=== PATIENT | female | born 1940 | race Two or more races ===

== ENCOUNTER 2018-08-17 18:12 | Inpatient (IN) | payer MEDICARE, OTHER ==
[~2018-08-17] VITALS: Ht 157.5 cm; Wt 106.1 kg
[~2018-08-17 18:12] MED LIST: ACET650T11 PO; ASCO500C16 PO; BISA10SU12 RC; DOCU-141 PO; ENOX40DI SQ; GABA-534 PO; LANTUS SUBCUT; LISI-603 PO; MAG30ORA PO; MAGN400O6 PO; MAGN400T6 PO; MULT-67 PO; NA P133E RC; PANT40TA2 PO; SIMV20TA2 PO; ZINC220T PO; ZOLP5TAB2 PO
--- NOTE | 2018-08-17 18:29 | NUR ---
PT A/OX4, BIB PRIVATE AMBULANCE FROM [facility], C/O LBKA PHANTOM PAIN. PT WAS ADMIN NORCO APPROXIMATELY AROUND 1300 TODAY. VS WNL. PT ALSO HAS R ABOVE ELBOW AMPUTATION.
--- NOTE | 2018-08-17 19:02 | NUR ---
SHIFT REPORT GIVEN TO SREE Rutherford RN.
--- NOTE | 2018-08-17 19:05 | NUR ---
ASSUMED CARE OF PATIENT FROM Malu DE LEON RN. PENDING ER MD CAVAZOS AT THIS TIME. VSS.
--- NOTE | 2018-08-17 19:18 | NUR ---
Patient not in cardiopulmonary distress. Rate/rythm regular. No heaves, lifts, gallops/murmurs noted. Respiration even and unlabored with symmetrical rise.
--- NOTE | 2018-08-17 19:41 | NUR ---
PATIENT PENDING INPATIENT ADMISSION TO TELEMETRY
[2018-08-17] MEDS ORDERED: HYDROMORPHONE 1 MG/1 ML DISP.SYRIN IV ONE (19:45)
[2018-08-17] MEDS ORDERED: ONDANSETRON 4 MG/2 ML VIAL IV ONE (19:45)
[2018-08-17] MEDS ORDERED: IV NORMAL SALINE 1000 ML BAG IV ONE (19:45)
[2018-08-17] MEDS ORDERED: LOPE-156 PO (19:57)
[2018-08-17] MEDS ORDERED: CRAN450T9 PO (19:57)
[2018-08-17] MEDS ORDERED: CALC-261 PO (19:57)
[2018-08-17] MEDS ORDERED: FAMO20TA8 PO (19:57)
[2018-08-17] MEDS ORDERED: OLOP5DRO EACHEYE (19:57)
[2018-08-17] MEDS ORDERED: LACT1CAP69 PO (19:57)
[2018-08-17] MEDS ORDERED: ALBU2.5V38 IH (19:57)
[2018-08-17] MEDS ORDERED: DEXT15DR6 OP (19:57)
[2018-08-17] MEDS ORDERED: HYDR-3326 PO (19:57)
[2018-08-17] MEDS ORDERED: BENA5TAB5 PO (19:57)
[2018-08-17] MEDS ORDERED: HYDROMORPHONE 1 MG/1 ML DISP.SYRIN ONE (19:57)
[2018-08-17] MEDS ORDERED: ONDANSETRON 4 MG/2 ML VIAL ONE (19:57)
[2018-08-17] MEDS ORDERED: ASPI-605 PO (19:57)
[2018-08-17] MEDS ORDERED: INSU100I26 SQ (19:57)
[2018-08-17] MEDS ORDERED: SIME80TA15 PO (19:57)
[2018-08-17] MEDS ORDERED: CARB-93 PO (19:57)
[2018-08-17] MEDS ORDERED: MULT-213 PO (19:57)
[2018-08-17] MEDS ORDERED: OMEG1CAP GT (19:57)
[2018-08-17] MEDS ORDERED: SIMV10TA6 PO (19:57)
[2018-08-17 20:03] LABS: BASOPHILS # (AUTO) 0.1 K/uL (0.0-8.0); BASOPHILS % (AUTO) 1.3 % (0.0-2.0); EOSINOPHILS # (AUTO) 0.1 K/uL (0.0-0.7); HEMATOCRIT 37.1 % (31.2-41.9); HEMOGLOBIN 12.2 g/dL (10.9-14.3); LYMPHOCYTES # (AUTO) 2.7 K/uL (20.0-40.0); LYMPHOCYTES % (AUTO) 28.8 % (20.5-51.5); MEAN CORPUSCULAR HEMOGLOBIN 28.6 uug (24.7-32.8); MEAN CORPUSCULAR HGB CONC 33 g/dL (32.3-35.6); MEAN CORPUSCULAR VOLUME 86.8 fL (75.5-95.3); MONOCYTES # (AUTO) 0.6 K/uL (2.0-10.0); NEUTROPHILS % (AUTO) 62.9 % (38.5-71.5); PLATELET COUNT (AUTO) 244 K/uL (179-408); RED BLOOD CELL COUNT(AUTO) 4.28 MIL/uL (3.63-4.92); WHITE BLOOD COUNT (AUTO) 9.5 K/uL (3.8-11.8)
--- NOTE | 2018-08-17 20:04 | NUR ---
PT IN BED, PENDING CT AT THIS TIME. MEDICATED FOR PAIN. WILL CONTINUE TO MONITOR.
[2018-08-17 20:12] LABS: CARBON DIOXIDE 26 mmol/L (21-32); CHLORIDE 101 mmol/L (98-107); CREATININE 1.1 mg/dL (0.6-1.3); GLUCOSE 203 mg/dL (74-106); POTASSIUM 4.7 mmol/L (3.5-5.1); UREA NITROGEN, BLOOD 19 mg/dL (7-18)
[2018-08-17] MEDS ORDERED: INSU100V11 SUBCUT (20:13)
[2018-08-17 20:17] LABS: ALANINE AMINOTRANSFERASE 9 U/L (14-59); ALKALINE PHOSPHATASE 76 U/L (50-136); ASPARTATE AMINOTRANSFERASE 15 U/L (15-37); BILIRUBIN,DIRECT 0.1 mg/dL (0.0-0.2); BILIRUBIN,TOTAL 0.3 mg/dL (0.2-1.0); LIPASE 96 U/L (73-393); TOTAL PROTEIN, SERUM 7.8 g/dL (6.4-8.2)
--- NOTE | 2018-08-17 20:21 | NUR ---
Patient taken for CT via trasport.
--- NOTE | 2018-08-17 20:37 | NUR ---
patient back from CT
--- NOTE | 2018-08-17 21:08 | NUR ---
Urine requested from patient. patient states she is unable to provide urine at this time.
--- NOTE | 2018-08-17 21:30 | NUR ---
report given to Violeta DONAHUE on Telemetry Pt. admitted to telemetry , under care of Dr Maradiaga. Dx Intractable Pain. Belongs List completed
--- NOTE | 2018-08-17 22:15 | NUR ---
Received patient from ER. Dx: Intractable pain. Patient is A/Ox4, Japanese speaking. 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 Heplock on the left wrist is intact and patent. No signs of acute distress noted. Complains of pain to the left leg. No complaints of SOB. All belongings brought with patient. Safety measures initiated. Bed is low and locked, call light within reach. Will continue to monitor.
[2018-08-17 22:26] VITALS: BP 132/56
[2018-08-17] MEDS ORDERED: OLOPATADINE 0.1% OPHT DROP 5 ML BOTTLE EACHEYE SCH (22:30)
[2018-08-17] MEDS ORDERED: ALBUTEROL SULFATE 2.5 MG/3 ML NEBU IH PRN (22:30)
[2018-08-17] MEDS ORDERED: HYDROCODONE/APAP 5-325MG TABLET PO PRN (22:30)
[2018-08-17] MEDS ORDERED: SIMETHICONE 80 MG TAB.CHEW PO PRN (22:30)
[2018-08-17] MEDS ORDERED: DEXTROSE 50% 50 ML DISP.SYRIN IV PRN (22:45)
[2018-08-17] MEDS ORDERED: ONDANSETRON 4 MG/2 ML VIAL IV PRN (22:45)
[2018-08-17] MEDS: MORPHINE SULFATE 2 MG/1 ML DISP.SYRIN IV PRN (23:04)
[2018-08-18] VITALS: BP 130/54
[2018-08-18] MEDS: ENOXAPARIN SODIUM 40 MG/0.4 ML DISP.SYRIN SQ SCH ×2 (00:07→21:21)
[2018-08-18] MEDS: INSULIN GLARGINE,HUM 300 UNITS/3 ML CARTRIDGE SQ SCH ×3 (01:05→22:32)
[2018-08-18] MEDS: MORPHINE SULFATE 2 MG/1 ML DISP.SYRIN IV PRN (02:15)
[2018-08-18] MEDS: ACETAMINOPHEN 325 MG TABLET PO PRN ×3 (02:22→17:15)
[2018-08-18 04:00] VITALS: BP 135/63
--- NOTE | 2018-08-18 04:47 | NUR ---
Patient was stating that morphine 2mg was not really helping with the pain, called on-call Dr. Saul and he increased dose to 3mg Q3H PRN. Will continue to monitor.
[2018-08-18 05:35] LABS: *BILIRUBIN,URIN NEGATIVE (NEGATIVE); *BLOOD, URINE NEGATIVE (NEGATIVE); *KETONES,URINE NEGATIVE (NEGATIVE); *UROBILINOGEN,URINE 0.2 E.U./dl (NORMAL); LEUKOCYTE ESTERASE ,URINE TRACE (NEGATIVE); NITRITE, URINE NEGATIVE (NEGATIVE); PH,URINE 5.5 (5.0-8.0); UGLUCOSE NEGATIVE (NEGATIVE)
[2018-08-18 05:36] LABS: *CLARITY,URINE HAZY (CLEAR); *COLOR,URINE STRAW (YELLOW)
[2018-08-18] MEDS: MORPHINE SULFATE 4 MG/1 ML DISP.SYRIN IV PRN ×3 (05:53→13:02)
[2018-08-18 05:56] LABS: BACTERIA,URINE MANY /HPF (NONE SEEN); RBC,URINE 0-3 /HPF (0-3); SQUAMOUS EPITHELIAL CELL,UR FEW /HPF (NONE SEEN)
[2018-08-18] MEDS: BLOOD SUGAR DIAGNOSTIC 1 EACH STRIP VI SCH ×4 (06:43→21:17)
[2018-08-18 07:01] LABS: BASOPHILS # (AUTO) 0.1 K/uL (0.0-8.0); BASOPHILS % (AUTO) 0.9 % (0.0-2.0); EOSINOPHILS # (AUTO) 0.1 K/uL (0.0-0.7); EOSINOPHILS % (AUTO) 1.4 % (0.0-7.0); HEMATOCRIT 34.1 % (31.2-41.9); HEMOGLOBIN 11.2 g/dL (10.9-14.3); LYMPHOCYTES # (AUTO) 3.2 K/uL (20.0-40.0); LYMPHOCYTES % (AUTO) 37.8 % (20.5-51.5); MEAN CORPUSCULAR HEMOGLOBIN 28.8 uug (24.7-32.8); MEAN CORPUSCULAR HGB CONC 33 g/dL (32.3-35.6); MONOCYTES # (AUTO) 0.7 K/uL (2.0-10.0); MONOCYTES % (AUTO) 8.2 % (0.0-11.0); NEUTROPHILS # (AUTO) 4.4 K/uL (1.8-8.9); NEUTROPHILS % (AUTO) 51.7 % (38.5-71.5); PLATELET COUNT (AUTO) 215 K/uL (179-408); RED BLOOD CELL COUNT(AUTO) 3.88 MIL/uL (3.63-4.92); WHITE BLOOD COUNT (AUTO) 8.4 K/uL (3.8-11.8)
[2018-08-18 07:12] LABS: IRON, SERUM 63 ug/dL (50-175)
[2018-08-18] MEDS ORDERED: ALBUTEROL SULFATE 2.5 MG/3 ML NEBU NEB PRN (07:21)
[2018-08-18 07:36] LABS: ALANINE AMINOTRANSFERASE 20 U/L (14-59); ALKALINE PHOSPHATASE 66 U/L (50-136); ASPARTATE AMINOTRANSFERASE 17 U/L (15-37); BILIRUBIN,TOTAL 0.3 mg/dL (0.2-1.0); CARBON DIOXIDE 29 mmol/L (21-32); CHLORIDE 103 mmol/L (98-107); CHOLESTEROL 178 mg/dL (<200); CREATININE 1.1 mg/dL (0.6-1.3); GLUCOSE 165 mg/dL (74-106); HDL CHOLESTEROL 49 mg/dL (40-60); MAGNESIUM 1.9 mg/dL (1.8-2.4); PHOSPHOROUS 3.8 mg/dL (2.5-4.9); POTASSIUM 4.6 mmol/L (3.5-5.1); TRIGLYCERIDES 170 MG/DL (30-150); UREA NITROGEN, BLOOD 18 mg/dL (7-18); URIC ACID 6.5 mg/dL (2.6-6.0)
--- NOTE | 2018-08-18 08:00 | NUR ---
Awake, alert, oriented x 4, Tamazight speaking, on moderate high back rest. Complaining of sever pain of left AKA stump. Blood glucose rechecked 124
[2018-08-18 08:06] LABS: THYROID STIMULATING HORMONE 3.802 mIU/mL (0.358-3.740)
[2018-08-18] MEDS ORDERED: Medication Not On Formulary EA (Lactobacillus Acidophilus (Probiotic) 1 EACH) PO SCH (09:00)
[2018-08-18] MEDS: SIMETHICONE 80 MG TAB.CHEW PO SCH ×3 (09:33→17:14)
[2018-08-18] MEDS: ACIDOPHILUS/BULGARICUS CHEW TAB PO SCH (09:34)
[2018-08-18] MEDS: ASPIRIN EC 81 MG TABLET.DR PO SCH (09:34)
[2018-08-18] MEDS: OMEGA-3 FATTY ACIDS/FISH OIL CAPSULE PO SCH (09:34)
[2018-08-18] MEDS: DOCUSATE SODIUM 100 MG CAPSULE PO SCH (09:34)
[2018-08-18] MEDS: ASCORBIC ACID 500 MG TABLET PO SCH (09:35)
[2018-08-18] MEDS: MULTIVIT, IRON, MIN NO. 8, FA TABLET PO SCH (09:35)
[2018-08-18] MEDS: CALCIUM CARB/VITAMIN D 500MG-200UNITS TABLET PO SCH (09:35)
[2018-08-18] MEDS: GABAPENTIN 300 MG CAPSULE PO SCH ×2 (09:35→17:14)
[2018-08-18] MEDS: NITROFURANTOIN/NITROFURAN MAC 100 MG CAPSULE PO SCH ×2 (09:35→21:11)
[2018-08-18] MEDS: CARBIDOPA/LEVODOPA 25-100MG TABLET PO SCH ×3 (09:35→17:14)
[2018-08-18] MEDS: BENAZEPRIL HCL 5 MG TABLET PO SCH (09:36)
--- NOTE | 2018-08-18 09:41 | NUR ---
Complaining of sever pain left stump BKA. Morphine IV given as ordered. Resting comfortably.
[2018-08-18] MEDS ORDERED: KETOROLAC TROMETHAMINE 15 MG INJ IVP PRN ×2 (10:45→12:45)
[2018-08-18 11:23] VITALS: BP 146/59
[2018-08-18] MEDS: INSULIN REGULAR, HUMAN 300 UNIT/3 ML VIAL SQ PRN ×2 (12:51→17:16)
--- NOTE | 2018-08-18 13:05 | NUR ---
Complaining left stump. Medicated with Morphine with relief
[2018-08-18] MEDS: POLYVINYL ALCOHOL OPHT DROPS 15 ML BOTTLE EACHEYE SCH ×2 (13:07→22:22)
[2018-08-18 15:28] VITALS: BP 113/50
--- NOTE | 2018-08-18 18:08 | NUR ---
Dr. Alvarez seen and examined patient, discussed plan for pain management.
[2018-08-18] MEDS ORDERED: OXYCODONE/APAP 5-325 MG TABLET PO PRN (18:15)
[2018-08-18] MEDS: DULOXETINE 20 MG CAPSULE.DR PO SCH (19:20)
[2018-08-18 20:37] VITALS: BP 131/67
[2018-08-18] MEDS ORDERED: DOCUSATE SODIUM 100 MG CAPSULE PO SCH (21:00)
[2018-08-18] MEDS ORDERED: DOCUSATE SODIUM 250 MG CAPSULE PO SCH (21:00)
[2018-08-18] MEDS: FAMOTIDINE 20 MG TABLET PO SCH (21:11)
[2018-08-18] MEDS: MAGNESIUM OXIDE 400 MG TABLET PO SCH (21:11)
[2018-08-18] MEDS: SIMVASTATIN 10 MG TABLET PO SCH (21:11)
--- NOTE | 2018-08-18 21:43 | NUR ---
Patient's HS blood sugar is 139, RN notified PROGRAM DIRECTOR SCOUTING Jeffery regarding Lantus orders and gave orders to give 32 units sq instead of 64 units.
[2018-08-18] MEDS ORDERED: INSULIN GLARGINE,HUM 300 UNITS/3 ML CARTRIDGE SQ ONE (22:00)
[2018-08-18] MEDS: LIDOCAINE 5% OINT 35.44 GM TUBE TOP SCH (22:22)
[2018-08-18] MEDS: OXYCODONE/APAP 5-325 MG TABLET PO PRN (22:23)
[2018-08-19 05:33] VITALS: BP 125/78
[2018-08-19] MEDS: BLOOD SUGAR DIAGNOSTIC 1 EACH STRIP VI SCH ×4 (06:32→22:45)
[2018-08-19] MEDS: POLYVINYL ALCOHOL OPHT DROPS 15 ML BOTTLE EACHEYE SCH ×3 (06:32→22:05)
[2018-08-19 06:56] LABS: BASOPHILS # (AUTO) 0.1 K/uL (0.0-8.0); EOSINOPHILS # (AUTO) 0.1 K/uL (0.0-0.7); EOSINOPHILS % (AUTO) 1.8 % (0.0-7.0); HEMATOCRIT 33.1 % (31.2-41.9); HEMOGLOBIN 11.3 g/dL (10.9-14.3); LYMPHOCYTES # (AUTO) 2.4 K/uL (20.0-40.0); LYMPHOCYTES % (AUTO) 34.5 % (20.5-51.5); MEAN CORPUSCULAR HEMOGLOBIN 30.1 uug (24.7-32.8); MEAN CORPUSCULAR HGB CONC 34 g/dL (32.3-35.6); MEAN CORPUSCULAR VOLUME 88.5 fL (75.5-95.3); MONOCYTES # (AUTO) 0.5 K/uL (2.0-10.0); MONOCYTES % (AUTO) 7.4 % (0.0-11.0); NEUTROPHILS # (AUTO) 3.8 K/uL (1.8-8.9); NEUTROPHILS % (AUTO) 55.3 % (38.5-71.5); PLATELET COUNT (AUTO) 176 K/uL (179-408); RED BLOOD CELL COUNT(AUTO) 3.74 MIL/uL (3.63-4.92); WHITE BLOOD COUNT (AUTO) 6.9 K/uL (3.8-11.8)
--- NOTE | 2018-08-19 06:56 | NUR ---
Pt is A&Ox3, calm & cooperative, Chinese-speaking only. C/o 8/10 pain to left stump, PRN percocet and IV Morphine given during shift. Pain meds effective. No acute respiratory distress noted throughout shift. No diabetic crisis observed. All needs met.
[2018-08-19 07:05] LABS: CARBON DIOXIDE 29 mmol/L (21-32); CHLORIDE 102 mmol/L (98-107); CREATININE 1.2 mg/dL (0.6-1.3); GLUCOSE 130 mg/dL (74-106); PHOSPHOROUS 4.5 mg/dL (2.5-4.9); POTASSIUM 4.7 mmol/L (3.5-5.1); UREA NITROGEN, BLOOD 19 mg/dL (7-18)
[2018-08-19] MEDS: DOCUSATE SODIUM 100 MG CAPSULE PO SCH (08:00)
[2018-08-19] MEDS: ACIDOPHILUS/BULGARICUS CHEW TAB PO SCH (08:00)
[2018-08-19] MEDS: NITROFURANTOIN/NITROFURAN MAC 100 MG CAPSULE PO SCH ×2 (08:00→21:53)
[2018-08-19] MEDS: OMEGA-3 FATTY ACIDS/FISH OIL CAPSULE PO SCH (08:00)
[2018-08-19] MEDS: ASPIRIN EC 81 MG TABLET.DR PO SCH (08:01)
[2018-08-19] MEDS: MULTIVIT, IRON, MIN NO. 8, FA TABLET PO SCH (08:01)
[2018-08-19] MEDS: CALCIUM CARB/VITAMIN D 500MG-200UNITS TABLET PO SCH (08:01)
[2018-08-19] MEDS: ASCORBIC ACID 500 MG TABLET PO SCH (08:01)
[2018-08-19] MEDS: GABAPENTIN 300 MG CAPSULE PO SCH ×3 (08:01→16:38)
[2018-08-19] MEDS: SIMETHICONE 80 MG TAB.CHEW PO SCH ×3 (08:01→17:13)
[2018-08-19] MEDS: BENAZEPRIL HCL 5 MG TABLET PO SCH (08:02)
[2018-08-19] MEDS: CARBIDOPA/LEVODOPA 25-100MG TABLET PO SCH ×3 (08:02→16:38)
[2018-08-19] MEDS: DULOXETINE 20 MG CAPSULE.DR PO SCH (08:02)
[2018-08-19] MEDS: LIDOCAINE 5% OINT 35.44 GM TUBE TOP SCH ×2 (08:30→16:38)
[2018-08-19] MEDS: INSULIN REGULAR, HUMAN 300 UNIT/3 ML VIAL SQ PRN ×3 (10:54→23:27)
[2018-08-19] MEDS: ACETAMINOPHEN 325 MG TABLET PO PRN (10:56)
[2018-08-19 11:06] VITALS: BP 117/58
[2018-08-19 15:31] VITALS: BP 111/55
[2018-08-19 19:17] VITALS: BP 107/54
[2018-08-19] MEDS: SIMVASTATIN 10 MG TABLET PO SCH (21:53)
[2018-08-19] MEDS: MAGNESIUM OXIDE 400 MG TABLET PO SCH (21:53)
[2018-08-19] MEDS: FAMOTIDINE 20 MG TABLET PO SCH (21:53)
[2018-08-19] MEDS: ENOXAPARIN SODIUM 40 MG/0.4 ML DISP.SYRIN SQ SCH (22:01)
[2018-08-19] MEDS: OXYCODONE/APAP 5-325 MG TABLET PO PRN (22:16)
[2018-08-20 03:23] VITALS: BP 117/55
[2018-08-20] MEDS: POLYVINYL ALCOHOL OPHT DROPS 15 ML BOTTLE EACHEYE SCH ×2 (05:43→13:00)
[2018-08-20 06:43] LABS: BASOPHILS # (AUTO) 0.1 K/uL (0.0-8.0); BASOPHILS % (AUTO) 0.8 % (0.0-2.0); EOSINOPHILS # (AUTO) 0.2 K/uL (0.0-0.7); EOSINOPHILS % (AUTO) 2.1 % (0.0-7.0); HEMATOCRIT 34.8 % (31.2-41.9); HEMOGLOBIN 11.4 g/dL (10.9-14.3); LYMPHOCYTES # (AUTO) 2.6 K/uL (20.0-40.0); MEAN CORPUSCULAR HEMOGLOBIN 28.9 uug (24.7-32.8); MEAN CORPUSCULAR HGB CONC 33 g/dL (32.3-35.6); MEAN CORPUSCULAR VOLUME 87.9 fL (75.5-95.3); MONOCYTES # (AUTO) 0.6 K/uL (2.0-10.0); MONOCYTES % (AUTO) 7.8 % (0.0-11.0); NEUTROPHILS # (AUTO) 4.3 K/uL (1.8-8.9); NEUTROPHILS % (AUTO) 55.3 % (38.5-71.5); PLATELET COUNT (AUTO) 221 K/uL (179-408); RED BLOOD CELL COUNT(AUTO) 3.95 MIL/uL (3.63-4.92); WHITE BLOOD COUNT (AUTO) 7.8 K/uL (3.8-11.8)
[2018-08-20 06:55] LABS: CARBON DIOXIDE 29 mmol/L (21-32); CHLORIDE 102 mmol/L (98-107); GLUCOSE 137 mg/dL (74-106); MAGNESIUM 2.2 mg/dL (1.8-2.4); POTASSIUM 4.4 mmol/L (3.5-5.1); UREA NITROGEN, BLOOD 22 mg/dL (7-18)
[2018-08-20] MEDS: BLOOD SUGAR DIAGNOSTIC 1 EACH STRIP VI SCH ×2 (06:55→10:44)
[2018-08-20] MEDS: INSULIN REGULAR, HUMAN 300 UNIT/3 ML VIAL SQ PRN ×2 (07:15→11:35)
[2018-08-20] MEDS: DOCUSATE SODIUM 100 MG CAPSULE PO SCH (08:15)
[2018-08-20] MEDS: CARBIDOPA/LEVODOPA 25-100MG TABLET PO SCH ×2 (08:15→12:06)
[2018-08-20] MEDS: ASCORBIC ACID 500 MG TABLET PO SCH (08:16)
[2018-08-20] MEDS: CALCIUM CARB/VITAMIN D 500MG-200UNITS TABLET PO SCH (08:16)
[2018-08-20] MEDS: OMEGA-3 FATTY ACIDS/FISH OIL CAPSULE PO SCH (08:16)
[2018-08-20] MEDS: SIMETHICONE 80 MG TAB.CHEW PO SCH ×2 (08:16→11:29)
[2018-08-20] MEDS: ACIDOPHILUS/BULGARICUS CHEW TAB PO SCH (08:16)
[2018-08-20] MEDS: DULOXETINE 20 MG CAPSULE.DR PO SCH (08:16)
[2018-08-20] MEDS: BENAZEPRIL HCL 5 MG TABLET PO SCH (08:16)
[2018-08-20] MEDS: GABAPENTIN 300 MG CAPSULE PO SCH ×2 (08:16→12:06)
[2018-08-20] MEDS: ASPIRIN EC 81 MG TABLET.DR PO SCH (08:16)
[2018-08-20] MEDS: MULTIVIT, IRON, MIN NO. 8, FA TABLET PO SCH (08:16)
[2018-08-20] MEDS: NITROFURANTOIN/NITROFURAN MAC 100 MG CAPSULE PO SCH (08:17)
[2018-08-20] MEDS: LIDOCAINE 5% OINT 35.44 GM TUBE TOP SCH (08:18)
[2018-08-20] MEDS: OXYCODONE/APAP 5-325 MG TABLET PO PRN (11:29)
[2018-08-20 12:16] VITALS: BP 127/65
[2018-08-20] MEDS ORDERED: DULO20CA PO (12:43)
[2018-08-20] MEDS ORDERED: Oxycodone/Apap 5-325 Mg PO (12:43)
[2018-08-20] MEDS ORDERED: LIDO35.4 TOP (12:43)
[2018-08-20] MEDS ORDERED: GABA-534 PO (12:43)
--- NOTE | 2018-08-20 13:36 | NUR ---
d/c orders received noted and carried out,d/c instruction and rn report given to fpc d/c terelock per md orders, pt left the facility via ambulances in stable condition
== END 2018-08-20 13:55 | DRG 552 ==
LOC: ER 18:14 → TELE3 21:44 → MEDSURG3 08-18 11:55
PROVIDERS: ADMIT Internal Medicine; ATTEND Internal Medicine
DX: M48.061 Spinal stenosis, lumbar region without neurogenic claudication (principal); I13.0 Hypertensive heart and chronic kidney disease with heart failure and stage 1 through stage 4 chronic kidney disease, or unspecified chronic kidney disease; I50.32 Chronic diastolic (congestive) heart failure; N39.0 Urinary tract infection, site not specified; Z68.41 Body mass index [BMI] 40.0-44.9, adult; D68.59 Other primary thrombophilia; M51.16 Intervertebral disc disorders with radiculopathy, lumbar region; E11.42 Type 2 diabetes mellitus with diabetic polyneuropathy; Z79.4 Long term (current) use of insulin; Z89.612 Acquired absence of left leg above knee; E66.01 Morbid (severe) obesity due to excess calories; E11.65 Type 2 diabetes mellitus with hyperglycemia; E11.22 Type 2 diabetes mellitus with diabetic chronic kidney disease; N18.9 Chronic kidney disease, unspecified; Z96.653 Presence of artificial knee joint, bilateral; E78.5 Hyperlipidemia, unspecified; Z74.09 Other reduced mobility; Z89.211 Acquired absence of right upper limb below elbow; K21.9 Gastro-esophageal reflux disease without esophagitis; M47.9 Spondylosis, unspecified; M19.011 Primary osteoarthritis, right shoulder; K42.9 Umbilical hernia without obstruction or gangrene; G31.84 Mild cognitive impairment of uncertain or unknown etiology; M48.10 Ankylosing hyperostosis [Forestier], site unspecified; I25.10 Atherosclerotic heart disease of native coronary artery without angina pectoris; M19.012 Primary osteoarthritis, left shoulder; K76.0 Fatty (change of) liver, not elsewhere classified; G89.4 Chronic pain syndrome; M77.9 Enthesopathy, unspecified; M40.56 Lordosis, unspecified, lumbar region; D64.9 Anemia, unspecified
CPT/HCPCS: 36415; 70030-TC; 71045; 72131; 83550; 83605; 83690; 83735; 84100; 84443; 84550; 85025; 85730; 87040; 87086; 87400; 93005; 97530; A4663; G0378; J1170; J1650; J1815; J1885; J2270; J2405

== ENCOUNTER 2019-01-18 23:42 | Inpatient (IN) | payer MEDICARE, OTHER ==
[~2019-01-18] VITALS: Ht 162.6 cm; Wt 108.9 kg
[~2019-01-18 23:42] MED LIST changes: +ALBU2.5V38 IH; +ASPI-605 PO; +BENA5TAB5 PO; -BISA10SU12 RC; +CALC-261 PO; +CARB-93 PO; +CRAN450T9 PO; +DEXT15DR6 OP; +DULO20CA PO; -ENOX40DI SQ; +FAMO20TA8 PO; +INSU100V11 SUBCUT; +LACT1CAP69 PO; -LANTUS SUBCUT; +LIDO35.4 TOP; -LISI-603 PO; +LOPE-195 PO; -MAG30ORA PO; -MAGN400O6 PO; +MULT-213 PO; -MULT-67 PO; -NA P133E RC; +OLOP5DRO EACHEYE; +OMEG1CAP PO; +Oxycodone/Apap 5-325 Mg PO; -PANT40TA2 PO; +SIME80TA15 PO; +SIMV10TA6 PO; -SIMV20TA2 PO; -ZINC220T PO; -ZOLP5TAB2 PO
--- NOTE | 2019-01-19 00:23 | NUR ---
PATIENT WITH DRAINAGE FROM BOTH EYES CLEANSED WITH SOAP AND WATER BOTH EYES ARE RED IN COLOR. DENIES PAIN TO EYES.
[2019-01-19 00:46] LABS: BASOPHILS # (AUTO) 0.1 K/uL (0.0-8.0); BASOPHILS % (AUTO) 0.6 % (0.0-2.0); EOSINOPHILS # (AUTO) 0.2 K/uL (0.0-0.7); EOSINOPHILS % (AUTO) 1.7 % (0.0-7.0); HEMATOCRIT 31.9 % (31.2-41.9); HEMOGLOBIN 10.4 g/dL (10.9-14.3); LYMPHOCYTES # (AUTO) 2.7 K/uL (20.0-40.0); LYMPHOCYTES % (AUTO) 20.7 % (20.5-51.5); MEAN CORPUSCULAR HEMOGLOBIN 28.3 uug (24.7-32.8); MEAN CORPUSCULAR HGB CONC 32 g/dL (32.3-35.6); MEAN CORPUSCULAR VOLUME 87.3 fL (75.5-95.3); MONOCYTES # (AUTO) 1.4 K/uL (2.0-10.0); MONOCYTES % (AUTO) 10.4 % (0.0-11.0); NEUTROPHILS # (AUTO) 8.8 K/uL (1.8-8.9); NEUTROPHILS % (AUTO) 66.6 % (38.5-71.5); PLATELET COUNT (AUTO) 330 K/uL (179-408); RED BLOOD CELL COUNT(AUTO) 3.66 MIL/uL (3.63-4.92); WHITE BLOOD COUNT (AUTO) 13.2 K/uL (3.8-11.8)
[2019-01-19 00:47] LABS: CARBON DIOXIDE 28 mmol/L (21-32); CHLORIDE 97 mmol/L (98-107); CREATININE 1.6 mg/dL (0.6-1.3); GLUCOSE 189 mg/dL (74-106); UREA NITROGEN, BLOOD 22 mg/dL (7-18)
[2019-01-19 00:53] LABS: ALANINE AMINOTRANSFERASE 18 U/L (14-59); ALKALINE PHOSPHATASE 97 U/L (50-136); ASPARTATE AMINOTRANSFERASE 47 U/L (15-37); BILIRUBIN,DIRECT 0.1 mg/dL (0.0-0.2); BILIRUBIN,TOTAL 0.2 mg/dL (0.2-1.0); TOTAL PROTEIN, SERUM 7.7 g/dL (6.4-8.2)
[2019-01-19] MEDS ORDERED: MAGN400O6 PO (01:21)
[2019-01-19] MEDS ORDERED: INSULIN GLARGINE SUBCUT (01:21)
[2019-01-19] MEDS ORDERED: HYDR-3326 PO (01:21)
[2019-01-19] MEDS ORDERED: ALCA3DRO OP (01:21)
[2019-01-19] MEDS ORDERED: NA P133E RC (01:21)
[2019-01-19] MEDS ORDERED: BISA10SU61 RC (01:21)
[2019-01-19] MEDS ORDERED: ATOR10TA PO (01:21)
[2019-01-19] MEDS ORDERED: INSU100V11 SUBCUT (01:21)
[2019-01-19 02:07] LABS: *BILIRUBIN,URIN NEGATIVE (NEGATIVE); *BLOOD, URINE 2+ (NEGATIVE); *CLARITY,URINE CLEAR (CLEAR); *COLOR,URINE YELLOW (YELLOW); *KETONES,URINE NEGATIVE (NEGATIVE); *UROBILINOGEN,URINE 0.2 E.U./dl (NORMAL); LEUKOCYTE ESTERASE ,URINE TRACE (NEGATIVE); NITRITE, URINE NEGATIVE (NEGATIVE); UGLUCOSE NEGATIVE (NEGATIVE)
[2019-01-19 02:16] LABS: BACTERIA,URINE MODERATE /HPF (NONE SEEN); RBC,URINE 0-3 /HPF (0-3); SQUAMOUS EPITHELIAL CELL,UR MANY /HPF (NONE SEEN)
--- NOTE | 2019-01-19 02:56 | NUR ---
PATIENT LABS AND FLU SWAB REOPRT BACK FROM LAB AWAITING PLAN OF CARE.
--- NOTE | 2019-01-19 04:17 | NUR ---
Paged [employer] panel information tech. Waiting for Kasia MANAGER PROFESSIONAL DEVELOPMENT to call back.
--- NOTE | 2019-01-19 04:18 | NUR ---
Dr dumont speaking with Kasia ROLL ICER tactical deception plans officer for [facility].
--- NOTE | 2019-01-19 04:26 | NUR ---
report called to narda lacey
[2019-01-19 05:00] VITALS: BP 165/69
--- NOTE | 2019-01-19 05:00 | NUR ---
Received patient via gurney from ED accompanied by RN. Transferred safely to bed. Patient AOx4 but unable to ambulate. Noted right upper extremity and left above knee amputated. No complaints at this time. With rizo catheter to urine bag with clear yellow urine. Afebrile upon arrival. Attended all needs. Ensured safety and comfort.
[2019-01-19] MEDS ORDERED: ACETAMINOPHEN 325 MG TABLET PO PRN (05:15)
[2019-01-19] MEDS ORDERED: Z GUARD REMEDY PASTE 57 GM TUBE TOP PRN (05:15)
[2019-01-19] MEDS ORDERED: ONDANSETRON 4 MG/2 ML VIAL IV PRN (05:15)
[2019-01-19] MEDS ORDERED: ZOLPIDEM 5 MG TABLET PO PRN (05:15)
[2019-01-19] MEDS ORDERED: DEXTROSE 50% 50 ML DISP.SYRIN IV PRN (05:15)
[2019-01-19] MEDS ORDERED: MAGNESIUM HYDROXIDE 30 ML LIQUID UDC PO PRN ×2 (05:15→10:45)
[2019-01-19] MEDS: IV NS 1000 ML 1,000 ML IV PRN ×2 (05:46→19:45)
[2019-01-19] MEDS ORDERED: AZITHROMYCIN 500MG/ D5W 250ML IVPB **ER PYXIS ONLY IV ONE (05:58)
[2019-01-19] MEDS ORDERED: CEFTRIAXONE /D5W 50ML IVPB **ER PYXIS IV ONE (05:59)
[2019-01-19] MEDS ORDERED: CEFTRIAXONE 1 G in IV DEXTROSE 5% 50 ML IV SCH (06:00)
[2019-01-19] MEDS: BLOOD SUGAR DIAGNOSTIC 1 EACH STRIP VI SCH ×4 (06:32→20:46)
[2019-01-19] MEDS: AZITHROMYCIN IV 500 MG in IV DEXTROSE 5% 250 ML IV SCH (06:37)
[2019-01-19] MEDS: INSULIN REGULAR, HUMAN 300 UNIT/3 ML VIAL SQ PRN ×4 (08:30→20:48)
[2019-01-19] MEDS: HEPARIN SODIUM,PORCINE 5,000 UNITS/ML VIAL SQ SCH ×2 (08:33→20:55)
[2019-01-19 08:43] VITALS: BP 148/66
[2019-01-19] MEDS: HYDROCODONE/APAP 5-325MG TABLET PO PRN ×2 (08:55→15:16)
--- NOTE | 2019-01-19 09:49 | NUR ---
CALLED [facility] FOR DR. HDZ (TO RECONCILE THE HOME MEDS) , POND TENDER SAID SHE IS GONNA PAGE HIM WAITING FOR THE CALL BACK
[2019-01-19] MEDS ORDERED: BISACODYL 10 MG SUPP.RECT RC PRN (10:45)
[2019-01-19] MEDS ORDERED: HYDROCODONE/APAP 5-325MG TABLET PO PRN (10:45)
[2019-01-19] MEDS ORDERED: LOPERAMIDE HCL 2 MG CAPSULE PO PRN (10:45)
[2019-01-19] MEDS ORDERED: Medication Not On Formulary EA (Acetaminophen 650 MG) PO PRN (10:45)
[2019-01-19] MEDS ORDERED: ALBUTEROL SULFATE 2.5 MG/3 ML NEBU NEB PRN (11:00)
[2019-01-19 11:07] VITALS: BP 121/51
[2019-01-19] MEDS ORDERED: INSULIN REGULAR, HUMAN 300 UNIT/3 ML VIAL SQ SCH (11:30)
[2019-01-19] MEDS: CARBIDOPA/LEVODOPA 25-100MG TABLET PO SCH ×2 (12:22→17:23)
[2019-01-19] MEDS: ASPIRIN EC 81 MG TABLET.DR PO SCH (12:23)
[2019-01-19] MEDS: MULTIVIT, IRON, MIN NO. 8, FA TABLET PO SCH (12:23)
[2019-01-19] MEDS: DOCUSATE SODIUM 100 MG CAPSULE PO SCH (12:23)
[2019-01-19] MEDS: DULOXETINE 20 MG CAPSULE.DR PO SCH (12:23)
[2019-01-19] MEDS: BENAZEPRIL HCL 5 MG TABLET PO SCH (12:25)
--- NOTE | 2019-01-19 12:36 | NUR ---
Order received from Dr Raymundo to hold home insulin 23units ac
[2019-01-19] MEDS ORDERED: INSULIN ASPART SUBCUT SCH (13:00)
[2019-01-19] MEDS: GABAPENTIN 300 MG CAPSULE PO SCH ×2 (13:38→17:23)
[2019-01-19] MEDS: POLYVINYL ALCOHOL OPHT DROPS 15 ML BOTTLE EACHEYE SCH ×2 (13:39→21:10)
[2019-01-19 15:47] VITALS: BP 132/65
[2019-01-19] MEDS ORDERED: LIDOCAINE 5% OINT 35.44 GM TUBE TOP SCH (17:00)
--- NOTE | 2019-01-19 18:47 | NUR ---
Patient AOx4 but unable to ambulate. No distress or sob, productive cough, pain tcontroled with norco, rizo catheter to urine bag with clear cloudy urine. Afebrile this shift. Attended all needs. Ensured safety and comfort.
--- NOTE | 2019-01-19 19:30 | NUR ---
Received patient in bed AAOx4, Arabic speaking. No complaints of pain at this time. IV on L AC intact and patent w/ IVF infusing. Still w/ complaints of productive cough. F/C intact and draining clear yellow urine. Safety measures observed. Call light in reach
[2019-01-19 20:00] VITALS: BP 139/46
[2019-01-19] MEDS: SIMETHICONE 80 MG TAB.CHEW PO SCH (20:42)
[2019-01-19] MEDS: CULTURELLE CAPSULE PO SCH (20:42)
[2019-01-19] MEDS: ATORVASTATIN 10 MG TABLET PO SCH (20:42)
[2019-01-19] MEDS: FAMOTIDINE 20 MG TABLET PO SCH (20:42)
[2019-01-19] MEDS ORDERED: MAGNESIUM OXIDE 400 MG TABLET PO SCH (21:00)
[2019-01-19] MEDS ORDERED: CEFTRIAXONE 2 G in IV DEXTROSE 5% 100 ML IV SCH (21:00)
[2019-01-20] MEDS: GUAIFENESIN/DEXTROMETHORPHAN 5 ML UDC PO PRN ×2 (00:05→10:29)
[2019-01-20] MEDS: HYDROCODONE/APAP 5-325MG TABLET PO PRN ×5 (00:05→21:30)
[2019-01-20 04:49] VITALS: BP 133/64
[2019-01-20] MEDS: AZITHROMYCIN IV 500 MG in IV DEXTROSE 5% 250 ML IV SCH (05:09)
[2019-01-20] MEDS: POLYVINYL ALCOHOL OPHT DROPS 15 ML BOTTLE EACHEYE SCH ×3 (05:09→21:04)
[2019-01-20] MEDS ORDERED: CEFTRIAXONE 1 G in IV DEXTROSE 5% 50 ML IV SCH (06:00)
[2019-01-20] MEDS: BLOOD SUGAR DIAGNOSTIC 1 EACH STRIP VI SCH ×4 (06:25→21:03)
--- NOTE | 2019-01-20 06:40 | NUR ---
Patient slept intermittently. c/o generalized body pain, medicated w/ PRN [place] 5-325mg x2 this shift. All needs attended. Will endorse accordingly
[2019-01-20 06:54] LABS: BASOPHILS # (AUTO) 0.1 K/uL (0.0-8.0); BASOPHILS % (AUTO) 0.4 % (0.0-2.0); EOSINOPHILS # (AUTO) 0.2 K/uL (0.0-0.7); EOSINOPHILS % (AUTO) 1.5 % (0.0-7.0); HEMATOCRIT 31.6 % (31.2-41.9); HEMOGLOBIN 10.5 g/dL (10.9-14.3); LYMPHOCYTES # (AUTO) 2.9 K/uL (20.0-40.0); LYMPHOCYTES % (AUTO) 23.6 % (20.5-51.5); MEAN CORPUSCULAR HGB CONC 33 g/dL (32.3-35.6); MEAN CORPUSCULAR VOLUME 87.5 fL (75.5-95.3); MONOCYTES # (AUTO) 1.3 K/uL (2.0-10.0); MONOCYTES % (AUTO) 10.5 % (0.0-11.0); NEUTROPHILS # (AUTO) 7.9 K/uL (1.8-8.9); PLATELET COUNT (AUTO) 376 K/uL (179-408); RED BLOOD CELL COUNT(AUTO) 3.61 MIL/uL (3.63-4.92); WHITE BLOOD COUNT (AUTO) 12.4 K/uL (3.8-11.8)
[2019-01-20 06:55] LABS: CARBON DIOXIDE 30 mmol/L (21-32); CHLORIDE 100 mmol/L (98-107); CHOLESTEROL 136 mg/dL (<200); CREATININE 1.3 mg/dL (0.6-1.3); GLUCOSE 233 mg/dL (74-106); HDL CHOLESTEROL 36 mg/dL (40-60); MAGNESIUM 2.1 mg/dL (1.8-2.4); PHOSPHOROUS 3.4 mg/dL (2.5-4.9); POTASSIUM 4.8 mmol/L (3.5-5.1); TRIGLYCERIDES 119 MG/DL (30-150); UREA NITROGEN, BLOOD 18 mg/dL (7-18)
[2019-01-20] MEDS ORDERED: Medication Not On Formulary EA (Lactobacillus Acidophilus (Probiotic) 1 EACH) PO SCH (09:00)
[2019-01-20] MEDS ORDERED: CULTURELLE CAPSULE PO SCH (09:00)
[2019-01-20] MEDS ORDERED: Medication Not On Formulary EA (Ascorbic Acid (Vitamin C CAPSULE) 500 MG) PO SCH (09:00)
[2019-01-20] MEDS: INSULIN GLARGINE,HUM 300 UNITS/3 ML CARTRIDGE SQ SCH (09:00)
[2019-01-20] MEDS ORDERED: FLEET ENEMA 133 ML BOTTLE RC PRN (09:00)
[2019-01-20] MEDS ORDERED: Medication Not On Formulary EA (Cranberry Fruit (Cranberry) 450 MG) PO SCH (09:00)
[2019-01-20] MEDS ORDERED: Medication Not On Formulary EA (Multivitamins W-Minerals (Multivitamin With Minerals) 1 PO SCH (09:00)
[2019-01-20] MEDS ORDERED: INSULIN GLARGINE SUBCUT SCH (09:00)
[2019-01-20] MEDS: ASCORBIC ACID 500 MG TABLET PO SCH (10:26)
[2019-01-20] MEDS: CARBIDOPA/LEVODOPA 25-100MG TABLET PO SCH ×3 (10:27→17:28)
[2019-01-20] MEDS: GABAPENTIN 300 MG CAPSULE PO SCH ×3 (10:27→17:29)
[2019-01-20] MEDS: ASPIRIN EC 81 MG TABLET.DR PO SCH (10:27)
[2019-01-20] MEDS: DULOXETINE 20 MG CAPSULE.DR PO SCH (10:27)
[2019-01-20] MEDS: DOCUSATE SODIUM 100 MG CAPSULE PO SCH (10:28)
[2019-01-20] MEDS: BENAZEPRIL HCL 5 MG TABLET PO SCH (10:28)
[2019-01-20] MEDS: CULTURELLE CAPSULE PO SCH ×2 (10:38→21:03)
[2019-01-20] MEDS: MULTIVIT, IRON, MIN NO. 8, FA TABLET PO SCH (10:38)
[2019-01-20] MEDS: OMEGA-3 FATTY ACIDS/FISH OIL CAPSULE PO SCH (10:38)
[2019-01-20] MEDS: HEPARIN SODIUM,PORCINE 5,000 UNITS/ML VIAL SQ SCH ×2 (10:47→21:06)
[2019-01-20] MEDS ORDERED: VANCOMYCIN IV 1,000 MG in IV DEXTROSE 5% 250 ML IV SCH (11:00)
[2019-01-20] MEDS ORDERED: DEXTROSE 50% 50 ML DISP.SYRIN IV PRN (11:00)
[2019-01-20 11:09] VITALS: BP 128/68
[2019-01-20] MEDS: ALBUTEROL SULFATE 2.5 MG/3 ML NEBU NEB SCH ×4 (11:30→23:20)
[2019-01-20] MEDS ORDERED: PIPERACILLIN SODIUM/TAZOBACTAM 3.375 G in IV DEXTROSE 5% 50 ML IV SCH (12:00)
--- NOTE | 2019-01-20 12:04 | NUR ---
CLINICAL PHARMACY NOTE:VANCOMYCIN DOSING Vancomycin dosing on 78 y/o female 162.56cm 107.1kg for pneumonia Temp 99.1 BUN 18 Scr 1.3 WBC 12.4 also on Zosyn start vancomycin 1250mg ivpb q24h estimate trough 15. Will order trough level prior to 4th dose. Will continue to monitor
[2019-01-20] MEDS: BENZONATATE 100 MG CAPSULE PO SCH ×3 (12:32→21:10)
[2019-01-20] MEDS: VANCOMYCIN IV 1,250 MG in IV DEXTROSE 5% 250 ML IV SCH (12:39)
[2019-01-20] MEDS: IV NS 1000 ML 1,000 ML IV PRN (12:39)
[2019-01-20] MEDS: INSULIN REGULAR, HUMAN 300 UNIT/3 ML VIAL SQ PRN ×2 (14:34→17:38)
[2019-01-20 15:19] VITALS: BP 124/65
[2019-01-20] MEDS: PIPERACILLIN/TAZOBACTAM/D5W 3.375 G in PREMIXED 1 EACH IV SCH ×2 (17:47→21:36)
--- NOTE | 2019-01-20 19:30 | NUR ---
Received patient in bed asleep but arousable. No complaints of pain at this time. Still w/ complaints of productive cough. F/C intact and draining clear yellow urine. Safety measures observed. Call light in reach
[2019-01-20 20:00] VITALS: BP 142/63
--- NOTE | 2019-01-20 20:00 | NUR ---
Midline to L UA 18g inserted, intact and patent, IVF and IV ATB restarted
[2019-01-20] MEDS: SIMETHICONE 80 MG TAB.CHEW PO SCH (21:03)
[2019-01-20] MEDS: ATORVASTATIN 10 MG TABLET PO SCH (21:03)
[2019-01-20] MEDS: FAMOTIDINE 20 MG TABLET PO SCH (21:03)
[2019-01-20] MEDS: INSULIN REGULAR, HUMAN 300 UNITS/3 ML VIAL SQ PRN (21:09)
[2019-01-21] MEDS: ALBUTEROL SULFATE 2.5 MG/3 ML NEBU NEB SCH ×6 (03:21→23:16)
[2019-01-21 04:30] VITALS: BP 112/45
[2019-01-21] MEDS ORDERED: PIPERACILLIN/TAZOBACTAM/D5W 50 ML IV ONE (06:00)
[2019-01-21] MEDS: PIPERACILLIN/TAZOBACTAM/D5W 3.375 G in PREMIXED 1 EACH IV SCH ×3 (06:17→21:53)
[2019-01-21] MEDS: POLYVINYL ALCOHOL OPHT DROPS 15 ML BOTTLE EACHEYE SCH ×3 (06:17→21:53)
[2019-01-21] MEDS: BENZONATATE 100 MG CAPSULE PO SCH ×3 (06:17→21:55)
[2019-01-21] MEDS: HYDROCODONE/APAP 5-325MG TABLET PO PRN ×3 (06:18→21:00)
[2019-01-21] MEDS: BLOOD SUGAR DIAGNOSTIC 1 EACH STRIP VI SCH ×4 (06:24→22:25)
--- NOTE | 2019-01-21 06:40 | NUR ---
RT order not received
--- NOTE | 2019-01-21 06:45 | NUR ---
Patient slept well. c/o generalized body pain, medicated w/ PRN [place] 5-325mg x2 this shift. All needs attended. Will endorse accordingly
[2019-01-21 06:52] LABS: ALANINE AMINOTRANSFERASE 11 U/L (14-59); ALKALINE PHOSPHATASE 81 U/L (50-136); ASPARTATE AMINOTRANSFERASE 16 U/L (15-37); BILIRUBIN,TOTAL 0.2 mg/dL (0.2-1.0); CARBON DIOXIDE 30 mmol/L (21-32); CHLORIDE 102 mmol/L (98-107); CREATINE KINASE, TOTAL 125 U/L (26-192); CREATININE 1.3 mg/dL (0.6-1.3); GLUCOSE 214 mg/dL (74-106); PHOSPHOROUS 4.5 mg/dL (2.5-4.9); POTASSIUM 4.7 mmol/L (3.5-5.1); TOTAL PROTEIN, SERUM 7.3 g/dL (6.4-8.2); UREA NITROGEN, BLOOD 17 mg/dL (7-18)
[2019-01-21 06:54] LABS: BASOPHILS # (AUTO) 0.2 K/uL (0.0-8.0); BASOPHILS % (AUTO) 1.1 % (0.0-2.0); EOSINOPHILS # (AUTO) 0.3 K/uL (0.0-0.7); EOSINOPHILS % (AUTO) 1.8 % (0.0-7.0); HEMATOCRIT 31.1 % (31.2-41.9); HEMOGLOBIN 9.9 g/dL (10.9-14.3); LYMPHOCYTES # (AUTO) 4.4 K/uL (20.0-40.0); LYMPHOCYTES % (AUTO) 23.3 % (20.5-51.5); MEAN CORPUSCULAR HEMOGLOBIN 28.6 uug (24.7-32.8); MEAN CORPUSCULAR HGB CONC 32 g/dL (32.3-35.6); MEAN CORPUSCULAR VOLUME 89.5 fL (75.5-95.3); MONOCYTES # (AUTO) 1.8 K/uL (2.0-10.0); MONOCYTES % (AUTO) 9.3 % (0.0-11.0); NEUTROPHILS # (AUTO) 12.2 K/uL (1.8-8.9); NEUTROPHILS % (AUTO) 64.5 % (38.5-71.5); PLATELET COUNT (AUTO) 367 K/uL (179-408); RED BLOOD CELL COUNT(AUTO) 3.48 MIL/uL (3.63-4.92); WHITE BLOOD COUNT (AUTO) 18.9 K/uL (3.8-11.8)
--- NOTE | 2019-01-21 07:59 | NUR ---
RECEIVED PT RESTING IN BED. PT DENIES PAIN AT THIS TIME. NO SOB OR ACUTE DISTRESS NOTED. BED LOW AND LOCKED. BED ALARM ON. CALL LIGHT WITHIN REACH. WILL CONTINUE TO MONITOR.
[2019-01-21] MEDS: INSULIN REGULAR, HUMAN 300 UNIT/3 ML VIAL SQ PRN ×3 (08:18→16:55)
[2019-01-21] MEDS: DULOXETINE 20 MG CAPSULE.DR PO SCH (08:46)
[2019-01-21] MEDS: GABAPENTIN 300 MG CAPSULE PO SCH ×3 (08:50→16:56)
[2019-01-21] MEDS: CARBIDOPA/LEVODOPA 25-100MG TABLET PO SCH ×3 (08:50→16:56)
[2019-01-21] MEDS: OMEGA-3 FATTY ACIDS/FISH OIL CAPSULE PO SCH (08:50)
[2019-01-21] MEDS: DOCUSATE SODIUM 100 MG CAPSULE PO SCH (08:50)
[2019-01-21] MEDS: CULTURELLE CAPSULE PO SCH ×2 (08:50→21:53)
[2019-01-21] MEDS: ASPIRIN EC 81 MG TABLET.DR PO SCH (08:50)
[2019-01-21] MEDS: BENAZEPRIL HCL 5 MG TABLET PO SCH (08:51)
[2019-01-21] MEDS: ASCORBIC ACID 500 MG TABLET PO SCH (08:51)
[2019-01-21] MEDS: HEPARIN SODIUM,PORCINE 5,000 UNITS/ML VIAL SQ SCH ×2 (08:53→21:55)
[2019-01-21] MEDS: INSULIN GLARGINE,HUM 300 UNITS/3 ML CARTRIDGE SQ SCH (09:33)
[2019-01-21] MEDS: MULTIVIT, IRON, MIN NO. 8, FA TABLET PO SCH (11:03)
[2019-01-21 11:47] VITALS: BP 123/50
--- NOTE | 2019-01-21 12:00 | NUR ---
PT RESTING COMFORTABLY IN BED. NO SIGNS OF SOB NOTED. NO ACUTE DISTRESS NOTED. PT DENIES PAIN AT THIS TIME. PT IS NEPALI SPEAKER. BED LOCKED. BED IN LOW POSITION. MID LINE FLUSHED. PATENT AND INTACT.
[2019-01-21] MEDS: VANCOMYCIN IV 1,250 MG in IV DEXTROSE 5% 250 ML IV SCH (12:58)
[2019-01-21] MEDS: IV NS 1000 ML 1,000 ML IV PRN (13:04)
[2019-01-21] MEDS ORDERED: AZITHROMYCIN IV 500 MG in IV DEXTROSE 5% 250 ML IV SCH ×2 (15:00→20:00)
--- NOTE | 2019-01-21 15:05 | NUR ---
CLINICAL PHARMACY NOTE:VANCOMYCIN DOSING Vancomycin dosing on 78 y/o female 162.56cm 107.1kg for pneumonia Temp 98.4 BUN 17 Scr 1.3 WBC 18.9 also on Zosyn Will continue vancomycin 1250mg ivpb q24h estimate trough 15, second dose today at 1200. Will order trough before 4th scheduled dose (not ordered yet). Will also follow renal function and adjust or dose per level if to become unstable. Will follow
[2019-01-21 15:50] VITALS: BP 116/62
[2019-01-21 16:19] VITALS: BP 116/62
--- NOTE | 2019-01-21 18:00 | NUR ---
PT RESTING COMFORTABLY IN BED. NO SIGNS OF SOB OR ACUTE DISTRESS. CALL LIGHT WITHIN REACH. PT DENIES PAIN AT THIS TIME. BED LOCKED AND IN LOW POSITION. URINE OUTPUT OF 1400 FUENTES. WILL GIVE SHIFT REPORT ACCORDINGLY.
[2019-01-21] MEDS: LIDOCAINE 5% OINT 35.44 GM TUBE TP SCH (19:31)
[2019-01-21 20:00] VITALS: BP 126/59
[2019-01-21] MEDS: SIMETHICONE 80 MG TAB.CHEW PO SCH (21:53)
[2019-01-21] MEDS: FAMOTIDINE 20 MG TABLET PO SCH (21:53)
[2019-01-21] MEDS: ATORVASTATIN 10 MG TABLET PO SCH (21:53)
[2019-01-21] MEDS: INSULIN REGULAR, HUMAN 300 UNITS/3 ML VIAL SQ PRN (22:25)
--- NOTE | 2019-01-21 22:48 | NUR ---
Transferred to another nurse due to assignment change.
[2019-01-22] MEDS: GUAIFENESIN/DEXTROMETHORPHAN 5 ML UDC PO PRN ×2 (02:50→08:56)
[2019-01-22] MEDS: ALBUTEROL SULFATE 2.5 MG/3 ML NEBU NEB SCH ×3 (02:58→11:21)
[2019-01-22 05:00] VITALS: BP 114/41
[2019-01-22] MEDS: PIPERACILLIN/TAZOBACTAM/D5W 3.375 G in PREMIXED 1 EACH IV SCH (06:38)
[2019-01-22] MEDS: POLYVINYL ALCOHOL OPHT DROPS 15 ML BOTTLE EACHEYE SCH ×2 (06:38→14:00)
[2019-01-22] MEDS: BENZONATATE 100 MG CAPSULE PO SCH (06:39)
[2019-01-22] MEDS: BLOOD SUGAR DIAGNOSTIC 1 EACH STRIP VI SCH ×2 (06:48→11:53)
[2019-01-22] MEDS: CULTURELLE CAPSULE PO SCH (08:16)
[2019-01-22] MEDS: DOCUSATE SODIUM 100 MG CAPSULE PO SCH (08:16)
[2019-01-22] MEDS: OMEGA-3 FATTY ACIDS/FISH OIL CAPSULE PO SCH (08:17)
[2019-01-22] MEDS: ASPIRIN EC 81 MG TABLET.DR PO SCH (08:17)
[2019-01-22] MEDS: DULOXETINE 20 MG CAPSULE.DR PO SCH (08:17)
[2019-01-22] MEDS: BENAZEPRIL HCL 5 MG TABLET PO SCH (08:18)
[2019-01-22] MEDS: GABAPENTIN 300 MG CAPSULE PO SCH ×2 (08:18→12:44)
[2019-01-22] MEDS: ASCORBIC ACID 500 MG TABLET PO SCH (08:19)
[2019-01-22] MEDS: CARBIDOPA/LEVODOPA 25-100MG TABLET PO SCH ×2 (08:19→12:44)
[2019-01-22] MEDS: HEPARIN SODIUM,PORCINE 5,000 UNITS/ML VIAL SQ SCH (08:28)
[2019-01-22] MEDS: LIDOCAINE 5% OINT 35.44 GM TUBE TP SCH (08:38)
[2019-01-22] MEDS: INSULIN GLARGINE,HUM 300 UNITS/3 ML CARTRIDGE SQ SCH (08:38)
[2019-01-22] MEDS: INSULIN REGULAR, HUMAN 300 UNIT/3 ML VIAL SQ PRN ×2 (09:00→12:51)
[2019-01-22 10:11] LABS: BASOPHILS # (AUTO) 0.1 K/uL (0.0-8.0); BASOPHILS % (AUTO) 1.4 % (0.0-2.0); EOSINOPHILS # (AUTO) 0.3 K/uL (0.0-0.7); EOSINOPHILS % (AUTO) 2.9 % (0.0-7.0); HEMATOCRIT 31.7 % (31.2-41.9); HEMOGLOBIN 10.4 g/dL (10.9-14.3); LYMPHOCYTES # (AUTO) 2.1 K/uL (20.0-40.0); LYMPHOCYTES % (AUTO) 21.6 % (20.5-51.5); MEAN CORPUSCULAR HGB CONC 33 g/dL (32.3-35.6); MEAN CORPUSCULAR VOLUME 88.5 fL (75.5-95.3); MONOCYTES # (AUTO) 0.6 K/uL (2.0-10.0); MONOCYTES % (AUTO) 6.6 % (0.0-11.0); NEUTROPHILS # (AUTO) 6.6 K/uL (1.8-8.9); NEUTROPHILS % (AUTO) 67.5 % (38.5-71.5); PLATELET COUNT (AUTO) 399 K/uL (179-408); RED BLOOD CELL COUNT(AUTO) 3.58 MIL/uL (3.63-4.92)
[2019-01-22 10:41] LABS: WHITE BLOOD COUNT (AUTO) 9.7 K/uL (3.8-11.8)
[2019-01-22] MEDS ORDERED: LEVO500T2 PO (11:24)
[2019-01-22 11:25] VITALS: BP 142/70
[2019-01-22 11:38] LABS: BAND % (MANUAL) 2 % (0-10); BASOPHILS % (MANUAL) 1 % (0-2); EOSINOPHILS % (MANUAL) 4 % (0-8); LYMPHOCYTES % (MANUAL) 25 % (20-40); METAMYELOCYTES % 1 % (0-1); MONOCYTES % (MANUAL) 4 % (2-10); MYELOCYTES % 1 % (0-0); NEUTROPHILS % (MANUAL) 62 % (42-75)
[2019-01-22] MEDS: MULTIVIT, IRON, MIN NO. 8, FA TABLET PO SCH (11:49)
[2019-01-22] MEDS: VANCOMYCIN IV 1,250 MG in IV DEXTROSE 5% 250 ML IV SCH (12:44)
--- NOTE | 2019-01-22 13:53 | NUR ---
CLINICAL PHARMACY NOTE:VANCOMYCIN DOSING Vancomycin dosing on 78 y/o female 162.56cm 107.1kg for pneumonia Temp 98.3 BUN 17(01/21) Scr 1.3(01/21) WBC 9.7 Temp 98.3 also on Zosyn Will continue vancomycin 1250mg ivpb q24h estimate trough 15, third dose today at 1200. Will order trough before 4th scheduled dose (ordered for tomorrow at 1130). Will also follow renal function and adjust or dose per level if to become unstable. Will follow
[2019-01-22 15:06] VITALS: BP 129/59
--- NOTE | 2019-01-22 15:06 | NUR ---
Pt. to be discharged to [facility]. All discharge paperwork printed and signed by pt luann georgian speaking supervisor phosphorus processing to educate pt on discharge instructions. Belongings list checked and signed by pt. All belongings with pt. Midline removed. Baez catheter removed. Gave report to RN at [facility]. Vital signs stable. pt. to be discharged from unit via gurney in ambulance.
[2019-01-22 22:06] LABS: A/G RATIO 0.6 (0.7-1.7); ALBUMIN 2.3 g/dL (2.9-4.4); ALPHA-1-GLOBULIN 0.4 g/dL (0.0-0.4); ALPHA-2-GLOBULIN 1.3 g/dL (0.4-1.0); GAMMA GLOBULIN 1.2 g/dL (0.4-1.8); GLOBULIN, TOTAL 3.8 g/dL (2.2-3.9); M-SPIKE Not Observed g/dL (Not Observed)
[2019-01-23 13:06] LABS: CRYPTOCOCCUS AB, SERUM Negative (Negative)
[2019-01-26 21:06] LABS: COCCIDIOIDES CF SERUM Negative (Neg:<1:2)
== END 2019-01-22 15:20 | DRG 865 ==
LOC: ER 23:45 → MEDSURG3 01-19 04:20
PROVIDERS: ADMIT Nurse Practitioner Acute Care; ATTEND Hospitalist
PROC: 05HC33Z Insertion of Infusion Device into Left Basilic Vein, Percutaneous Approach (ICD-10-PCS; principal; 2019-01-20)
DX: B34.9 Viral infection, unspecified (principal); E43 Unspecified severe protein-calorie malnutrition; N17.0 Acute kidney failure with tubular necrosis; I13.0 Hypertensive heart and chronic kidney disease with heart failure and stage 1 through stage 4 chronic kidney disease, or unspecified chronic kidney disease; N30.01 Acute cystitis with hematuria; Z68.41 Body mass index [BMI] 40.0-44.9, adult; J20.9 Acute bronchitis, unspecified; E11.42 Type 2 diabetes mellitus with diabetic polyneuropathy; Z89.612 Acquired absence of left leg above knee; G20 Parkinson's disease; G89.4 Chronic pain syndrome; E86.0 Dehydration; E11.65 Type 2 diabetes mellitus with hyperglycemia; M19.011 Primary osteoarthritis, right shoulder; Z89.111 Acquired absence of right hand; Z87.01 Personal history of pneumonia (recurrent); E11.22 Type 2 diabetes mellitus with diabetic chronic kidney disease; N18.9 Chronic kidney disease, unspecified; Z79.4 Long term (current) use of insulin; K21.9 Gastro-esophageal reflux disease without esophagitis; M81.0 Age-related osteoporosis without current pathological fracture; Z79.899 Other long term (current) drug therapy; Z82.49 Family history of ischemic heart disease and other diseases of the circulatory system; I50.9 Heart failure, unspecified; I25.10 Atherosclerotic heart disease of native coronary artery without angina pectoris; E78.5 Hyperlipidemia, unspecified; E66.01 Morbid (severe) obesity due to excess calories; Z71.3 Dietary counseling and surveillance
CPT/HCPCS: 36415; 70030-TC; 71045; 83605; 83735; 83970; 84100; 84155; 84165; 85025; 85730; 87040; 87086; 87328; 87400; 93005; 94640; 94664; A4663; G0378; J0456; J0696; J1644; J1815; J2543; J7030; J7040; J7060

== ENCOUNTER 2019-11-03 16:08 | Inpatient (IN) | payer MEDICARE, OTHER ==
[~2019-11-03] VITALS: Ht 152.4 cm; Wt 112.1 kg
[~2019-11-03 16:08] MED LIST changes: -ALBU2.5V38 IH; +ALCA3DRO OP; +ATOR10TA PO; +BISA10SU61 RC; +HYDR-3326 PO; +INSULIN GLARGINE SUBCUT; +LEVO500T2 PO; +MAGN400O6 PO; -MAGN400T6 PO; +MAGN400T8 PO; +NA P133E RC; -OLOP5DRO EACHEYE; -Oxycodone/Apap 5-325 Mg PO; -SIMV10TA6 PO
[2019-11-03 18:17] LABS: BASOPHILS # (AUTO) 0.1 K/uL (0.0-8.0); BASOPHILS % (AUTO) 1.3 % (0.0-2.0); EOSINOPHILS # (AUTO) 0.1 K/uL (0.0-0.7); EOSINOPHILS % (AUTO) 1.4 % (0.0-7.0); HEMATOCRIT 33.9 % (31.2-41.9); HEMOGLOBIN 11.2 g/dL (10.9-14.3); LYMPHOCYTES # (AUTO) 3.7 K/uL (20.0-40.0); LYMPHOCYTES % (AUTO) 43.5 % (20.5-51.5); MEAN CORPUSCULAR HEMOGLOBIN 28.9 uug (24.7-32.8); MEAN CORPUSCULAR HGB CONC 33 g/dL (32.3-35.6); MEAN CORPUSCULAR VOLUME 87.2 fL (75.5-95.3); MONOCYTES # (AUTO) 0.8 K/uL (2.0-10.0); MONOCYTES % (AUTO) 9.1 % (0.0-11.0); NEUTROPHILS # (AUTO) 3.9 K/uL (1.8-8.9); NEUTROPHILS % (AUTO) 44.7 % (38.5-71.5); PLATELET COUNT (AUTO) 232 K/uL (179-408); RED BLOOD CELL COUNT(AUTO) 3.88 MIL/uL (3.63-4.92); WHITE BLOOD COUNT (AUTO) 8.6 K/uL (3.8-11.8)
[2019-11-03 18:21] LABS: *BILIRUBIN,URIN NEGATIVE (NEGATIVE); *BLOOD, URINE NEGATIVE (NEGATIVE); *CLARITY,URINE CLEAR (CLEAR); *COLOR,URINE LIGHT YELLOW (YELLOW); *KETONES,URINE NEGATIVE (NEGATIVE); *UROBILINOGEN,URINE 0.2 E.U./dl (NORMAL); LEUKOCYTE ESTERASE ,URINE 1+ (NEGATIVE); NITRITE, URINE POSITIVE (NEGATIVE); PH,URINE 5.5 (5.0-8.0); UGLUCOSE NEGATIVE (NEGATIVE)
[2019-11-03 18:30] LABS: CREATININE 1.3 mg/dL (0.6-1.3)
[2019-11-03 18:45] LABS: BILIRUBIN,DIRECT 0.1 mg/dL (0.0-0.2); BILIRUBIN,TOTAL 0.2 mg/dL (0.2-1.0); TOTAL PROTEIN, SERUM 7.2 g/dL (6.4-8.2)
[2019-11-03] MEDS ORDERED: NITROFURANTOIN/NITROFURAN MAC 100 MG CAPSULE PO ONE (19:00)
--- NOTE | 2019-11-03 19:12 | NUR ---
Assumed care for patient at this time. Ao x 3, divehi speaking. Not in any distress. Pt is in bed, side rails up x 2. Bed locked in position. has just put in orders for CT, notified Radiology.
[2019-11-03 19:15] LABS: BACTERIA,URINE FEW /HPF (NONE SEEN); RBC,URINE 0-3 /HPF (0-3); SQUAMOUS EPITHELIAL CELL,UR FEW /HPF (NONE SEEN)
[2019-11-03] MEDS ORDERED: NITROFURANTOIN/NITROFURAN MAC 100 MG CAPSULE ONE (19:18)
[2019-11-03] MEDS ORDERED: ASPI1TAB4 PO (19:22)
[2019-11-03] MEDS ORDERED: ONDA4TAB5 PO (19:22)
[2019-11-03] MEDS ORDERED: ALCA3DRO EACHEYE (19:22)
[2019-11-03] MEDS ORDERED: OMEP20CA15 PO (19:22)
--- NOTE | 2019-11-03 20:30 | NUR ---
Pt down to CT. Addendum: 11/03/19 at 2110 by DEVANG Time: 1999.
--- NOTE | 2019-11-03 20:45 | NUR ---
Pt back from CT.
--- NOTE | 2019-11-03 21:08 | NUR ---
COVID 19 test done, and sent to lab. Dr. Connor is on the line with Bailey Smith NP for admission panel call.
--- NOTE | 2019-11-03 21:12 | NUR ---
Dr Connor at bedside to explain results to patient, accompanied by Albanian speaking RN IMCU for translation.
[2019-11-03] MEDS ORDERED: ONDANSETRON 4 MG/2 ML VIAL ONE (21:21)
[2019-11-03] MEDS ORDERED: HYDROMORPHONE 1 MG/1 ML DISP.SYRIN ONE (21:21)
--- NOTE | 2019-11-03 21:24 | NUR ---
Carlos Smith NP at bedside for MSE, with Aide GIFTY for translation.
[2019-11-03] MEDS ORDERED: HYDROMORPHONE 1 MG/1 ML DISP.SYRIN IV ONE (21:30)
[2019-11-03] MEDS ORDERED: ONDANSETRON 4 MG/2 ML VIAL IV ONE (21:30)
--- NOTE | 2019-11-03 22:00 | NUR ---
Report given to Kaela DONAHUE, patient pending COVID 19 fast results before sending upstairs.
[2019-11-03] MEDS ORDERED: ONDANSETRON 4 MG/2 ML VIAL IV PRN (22:15)
[2019-11-03] MEDS ORDERED: MAGNESIUM HYDROXIDE 30 ML LIQUID UDC PO PRN (22:15)
[2019-11-03] MEDS ORDERED: BISACODYL 10 MG SUPP.RECT RC PRN (22:15)
[2019-11-03] MEDS ORDERED: Z GUARD REMEDY PASTE 57 GM TUBE TOP PRN (22:15)
[2019-11-03] MEDS ORDERED: DEXTROSE 50% 50 ML DISP.SYRIN IV PRN (22:15)
[2019-11-03] MEDS ORDERED: ACETAMINOPHEN 325 MG TABLET PO PRN (22:15)
--- NOTE | 2019-11-03 22:58 | NUR ---
Patient is COVID (-). Ready to move in, rolling over at this time. Carlos Smith NP admitting provider, accepted pt for Adm DCX: UTI. Good perineal care provided, linen changed while in ER. Kept comfortable. VS remained stable. Will transfer via stretcher.
--- NOTE | 2019-11-03 23:15 | NUR ---
Warm handoff to Kaela DONAHUE and Laurie DURBIN.
--- NOTE | 2019-11-03 23:25 | NUR ---
Patient received from GODFREY Reyes via [facility] from ED. Patient is calm and cooperative. No signs or symptoms of acute distress at this time. Patient denies pain and SOB. Bed low and locked. Safety measures initiated and will continue to monitor.
[2019-11-03] MEDS ORDERED: MEROPENEM 0.5 G in IV NORMAL SALINE 50 ML IV SCH (23:26)
[2019-11-04 00:15] VITALS: BP 125/62
[2019-11-04] MEDS ORDERED: MEROPENEM 1 G VIAL IV ONE (00:46)
[2019-11-04] MEDS: HYDROCODONE/APAP 5-325MG TABLET PO PRN (00:52)
[2019-11-04] MEDS: ENOXAPARIN SODIUM 30 MG/0.3 ML DISP.SYRIN SQ SCH ×2 (00:54→20:38)
[2019-11-04] MEDS: IV NS 1000 ML 1,000 ML IV PRN ×2 (00:57→14:16)
[2019-11-04] MEDS: INSULIN GLARGINE,HUM 300 UNITS/3 ML CARTRIDGE SQ SCH ×2 (01:33→20:37)
[2019-11-04] MEDS: MORPHINE SULFATE 2 MG/1 ML DISP.SYRIN IV PRN ×6 (02:31→23:56)
[2019-11-04] MEDS ORDERED: POLYVINYL ALCOHOL OPHT DROPS 15 ML BOTTLE OP SCH (06:00)
[2019-11-04 06:02] VITALS: BP 116/62
[2019-11-04] MEDS: BLOOD SUGAR DIAGNOSTIC 1 EACH STRIP VI SCH ×4 (06:40→20:31)
[2019-11-04 06:46] LABS: BASOPHILS # (AUTO) 0.1 K/uL (0.0-8.0); BASOPHILS % (AUTO) 1.8 % (0.0-2.0); EOSINOPHILS # (AUTO) 0.1 K/uL (0.0-0.7); EOSINOPHILS % (AUTO) 1.8 % (0.0-7.0); HEMATOCRIT 33.6 % (31.2-41.9); LYMPHOCYTES # (AUTO) 3.2 K/uL (20.0-40.0); LYMPHOCYTES % (AUTO) 42.7 % (20.5-51.5); MEAN CORPUSCULAR HEMOGLOBIN 28.8 uug (24.7-32.8); MEAN CORPUSCULAR HGB CONC 33 g/dL (32.3-35.6); MEAN CORPUSCULAR VOLUME 87.8 fL (75.5-95.3); MONOCYTES # (AUTO) 0.6 K/uL (2.0-10.0); MONOCYTES % (AUTO) 7.9 % (0.0-11.0); NEUTROPHILS # (AUTO) 3.4 K/uL (1.8-8.9); NEUTROPHILS % (AUTO) 45.8 % (38.5-71.5); PLATELET COUNT (AUTO) 227 K/uL (179-408); RED BLOOD CELL COUNT(AUTO) 3.82 MIL/uL (3.63-4.92); WHITE BLOOD COUNT (AUTO) 7.4 K/uL (3.8-11.8)
[2019-11-04 06:55] LABS: CREATININE 1.3 mg/dL (0.6-1.3); MAGNESIUM 2.2 mg/dL (1.8-2.4); PHOSPHOROUS 4.8 mg/dL (2.5-4.9); POTASSIUM 4.9 mmol/L (3.5-5.1)
[2019-11-04 07:04] LABS: THYROID STIMULATING HORMONE 4.495 mIU/mL (0.358-3.740)
--- NOTE | 2019-11-04 08:00 | NUR ---
received pt. resting in bed alert oriented x3 welsh speaking. pt. denies pain/ discomfort. pt. denies sob/ difficulty breathing. pt. on room air saturating well. IV in R UA 20 gauge intact patent running prescribed fluid. all needs met. safety measures in place. call light within reach. will continue to monitor pt.
[2019-11-04] MEDS: OMEGA-3 FATTY ACIDS/FISH OIL CAPSULE PO SCH (08:06)
[2019-11-04] MEDS: MULTIVITAMINS,THERAPEUTIC TABLET PO SCH (08:06)
[2019-11-04] MEDS: DOCUSATE SODIUM 100 MG CAPSULE PO SCH (08:06)
[2019-11-04] MEDS: ASCORBIC ACID 500 MG TABLET PO SCH (08:06)
[2019-11-04] MEDS: GABAPENTIN 300 MG CAPSULE PO SCH ×3 (08:06→16:54)
[2019-11-04] MEDS: CULTURELLE CAPSULE PO SCH (08:06)
[2019-11-04] MEDS: CARBIDOPA/LEVODOPA 25-100MG TABLET PO SCH ×3 (08:06→16:54)
[2019-11-04] MEDS: CALCIUM CARB/VITAMIN D 500MG-200UNITS TABLET PO SCH (08:06)
[2019-11-04] MEDS: ASPIRIN EC 81 MG TABLET.DR PO SCH (08:06)
[2019-11-04] MEDS: BENAZEPRIL HCL 5 MG TABLET PO SCH (08:07)
[2019-11-04] MEDS: POLYVINYL ALCOHOL OPHT DROPS 15 ML BOTTLE OP SCH ×3 (08:16→16:54)
[2019-11-04] MEDS ORDERED: Medication Not On Formulary EA (Cranberry Fruit (Cranberry) 450 MG) PO SCH (09:00)
[2019-11-04] MEDS: MEROPENEM 0.5 G in IV NORMAL SALINE 50 ML IV SCH ×2 (09:04→17:03)
[2019-11-04 11:17] VITALS: BP 132/61
[2019-11-04] MEDS: INSULIN REGULAR, HUMAN 300 UNIT/3 ML VIAL SQ PRN ×3 (12:23→20:39)
[2019-11-04 12:55] LABS: *BILIRUBIN,URIN NEGATIVE (NEGATIVE); *BLOOD, URINE NEGATIVE (NEGATIVE); *CLARITY,URINE CLEAR (CLEAR); *COLOR,URINE YELLOW (YELLOW); *KETONES,URINE NEGATIVE (NEGATIVE); *UROBILINOGEN,URINE 0.2 E.U./dl (NORMAL); LEUKOCYTE ESTERASE ,URINE TRACE (NEGATIVE); NITRITE, URINE NEGATIVE (NEGATIVE); UGLUCOSE NEGATIVE (NEGATIVE)
[2019-11-04 13:07] LABS: *CREATININE,URINE 30.2 mg/dL (30-125); *URINE TOTAL PROTEIN RANDOM 6.9 mg/dL (<150/24HR)
[2019-11-04 13:55] LABS: BACTERIA,URINE RARE /HPF (NONE SEEN); SQUAMOUS EPITHELIAL CELL,UR FEW /HPF (NONE SEEN)
[2019-11-04 15:56] VITALS: BP 116/55
--- NOTE | 2019-11-04 19:35 | NUR ---
Received patient calm and in bed. Patient is Mohawk speaking only, AAOx3, Pt denies SOB or difficulty breathing at this time. Pt c/o of lower back pain and will administer pain medication per order. Left upper arm 20G IV patent and intact running prescribed fluids. Bed locked and in the lowest position. Safety measures in place and will continue to monitor.
[2019-11-04 20:00] VITALS: BP 131/44
[2019-11-04] MEDS: PANTOPRAZOLE SODIUM 40 MG TABLET.DR PO SCH (20:31)
[2019-11-04] MEDS: FAMOTIDINE 20 MG TABLET PO SCH (20:31)
[2019-11-04] MEDS: ATORVASTATIN 10 MG TABLET PO SCH (20:31)
[2019-11-04] MEDS: SIMETHICONE 80 MG TAB.CHEW PO SCH (20:31)
[2019-11-04] MEDS: MAGNESIUM OXIDE 400 MG TABLET PO SCH (20:31)
[2019-11-04] MEDS: ASPIRIN/ACETAMINOPHEN/CAFFEINE TABLET PO PRN (21:51)
[2019-11-05] MEDS: MEROPENEM 0.5 G in IV NORMAL SALINE 50 ML IV SCH ×2 (01:00→08:23)
[2019-11-05] MEDS: HYDROCODONE/APAP 5-325MG TABLET PO PRN (02:22)
[2019-11-05] MEDS: IV NS 1000 ML 1,000 ML IV PRN ×2 (03:53→17:19)
[2019-11-05 04:30] VITALS: BP 117/60
[2019-11-05] MEDS: MORPHINE SULFATE 2 MG/1 ML DISP.SYRIN IV PRN ×3 (04:35→12:09)
[2019-11-05 05:15] VITALS: BP 117/68
--- NOTE | 2019-11-05 06:00 | NUR ---
Morning labs delayed. Two failed attempts with LAB. Will come back for another attempt
[2019-11-05] MEDS: BLOOD SUGAR DIAGNOSTIC 1 EACH STRIP VI SCH ×4 (06:43→20:41)
[2019-11-05 07:30] VITALS: BP 128/72
[2019-11-05] MEDS: CALCIUM CARB/VITAMIN D 500MG-200UNITS TABLET PO SCH (08:17)
[2019-11-05] MEDS: ASCORBIC ACID 500 MG TABLET PO SCH (08:17)
[2019-11-05] MEDS: CULTURELLE CAPSULE PO SCH (08:17)
[2019-11-05] MEDS: CARBIDOPA/LEVODOPA 25-100MG TABLET PO SCH ×3 (08:17→17:09)
[2019-11-05] MEDS: DOCUSATE SODIUM 100 MG CAPSULE PO SCH (08:18)
[2019-11-05] MEDS: BENAZEPRIL HCL 5 MG TABLET PO SCH (08:18)
[2019-11-05] MEDS: MULTIVITAMINS,THERAPEUTIC TABLET PO SCH (08:18)
[2019-11-05] MEDS: GABAPENTIN 300 MG CAPSULE PO SCH ×3 (08:18→17:09)
[2019-11-05] MEDS: OMEGA-3 FATTY ACIDS/FISH OIL CAPSULE PO SCH (08:18)
[2019-11-05] MEDS: ASPIRIN EC 81 MG TABLET.DR PO SCH (08:24)
[2019-11-05] MEDS: POLYVINYL ALCOHOL OPHT DROPS 15 ML BOTTLE OP SCH ×3 (08:26→17:10)
[2019-11-05 10:35] LABS: BASOPHILS # (AUTO) 0.1 K/uL (0.0-8.0); EOSINOPHILS # (AUTO) 0.2 K/uL (0.0-0.7); EOSINOPHILS % (AUTO) 2.1 % (0.0-7.0); HEMATOCRIT 35.5 % (31.2-41.9); HEMOGLOBIN 11.7 g/dL (10.9-14.3); LYMPHOCYTES # (AUTO) 2.4 K/uL (20.0-40.0); LYMPHOCYTES % (AUTO) 31.4 % (20.5-51.5); MEAN CORPUSCULAR HEMOGLOBIN 29.2 uug (24.7-32.8); MEAN CORPUSCULAR HGB CONC 33 g/dL (32.3-35.6); MEAN CORPUSCULAR VOLUME 88.8 fL (75.5-95.3); MONOCYTES # (AUTO) 0.5 K/uL (2.0-10.0); MONOCYTES % (AUTO) 7.1 % (0.0-11.0); NEUTROPHILS # (AUTO) 4.5 K/uL (1.8-8.9); NEUTROPHILS % (AUTO) 58.4 % (38.5-71.5); PLATELET COUNT (AUTO) 227 K/uL (179-408); RED BLOOD CELL COUNT(AUTO) 4.01 MIL/uL (3.63-4.92); WHITE BLOOD COUNT (AUTO) 7.7 K/uL (3.8-11.8)
[2019-11-05 10:43] LABS: ALANINE AMINOTRANSFERASE 12 U/L (14-59); ALKALINE PHOSPHATASE 78 U/L (50-136); ASPARTATE AMINOTRANSFERASE 23 U/L (15-37); BILIRUBIN,TOTAL 0.3 mg/dL (0.2-1.0); CARBON DIOXIDE 27 mmol/L (21-32); CHLORIDE 102 mmol/L (98-107); CREATININE 1.5 mg/dL (0.6-1.3); GLUCOSE 147 mg/dL (74-106); MAGNESIUM 2.3 mg/dL (1.8-2.4); PHOSPHOROUS 4.6 mg/dL (2.5-4.9); POTASSIUM 5.2 mmol/L (3.5-5.1); TOTAL PROTEIN, SERUM 7.9 g/dL (6.4-8.2); UREA NITROGEN, BLOOD 29 mg/dL (7-18); URIC ACID 6.7 mg/dL (2.6-6.0)
[2019-11-05 10:52] LABS: THYROID STIMULATING HORMONE 3.581 mIU/mL (0.358-3.740)
[2019-11-05 11:07] LABS: CREATINE KINASE, TOTAL 123 U/L (26-192)
[2019-11-05] MEDS: INSULIN REGULAR, HUMAN 300 UNIT/3 ML VIAL SQ PRN ×2 (11:28→20:23)
[2019-11-05] MEDS: ASPIRIN/ACETAMINOPHEN/CAFFEINE TABLET PO PRN ×2 (14:50→23:59)
[2019-11-05 16:01] VITALS: BP 110/42
[2019-11-05] MEDS: MEROPENEM 500 MG in IV NORMAL SALINE 50 ML IV SCH (17:11)
--- NOTE | 2019-11-05 20:00 | NUR ---
Patient received into care, sitting up in bed, watching television. Patient is alert/oriented x3 and Divehi speaking only, c/o migraine. All safety and fall precaution measures are in place. Call light and personal items are within reach. Will continue to monitor and assess.
[2019-11-05 20:11] VITALS: BP 147/68
[2019-11-05] MEDS: FAMOTIDINE 20 MG TABLET PO SCH (20:19)
[2019-11-05] MEDS: PANTOPRAZOLE SODIUM 40 MG TABLET.DR PO SCH (20:19)
[2019-11-05] MEDS: MAGNESIUM OXIDE 400 MG TABLET PO SCH (20:19)
[2019-11-05] MEDS: ATORVASTATIN 10 MG TABLET PO SCH (20:19)
[2019-11-05] MEDS: SIMETHICONE 80 MG TAB.CHEW PO SCH (20:19)
[2019-11-05] MEDS: INSULIN GLARGINE,HUM 300 UNITS/3 ML CARTRIDGE SQ SCH (20:21)
[2019-11-05] MEDS: ENOXAPARIN SODIUM 30 MG/0.3 ML DISP.SYRIN SQ SCH (20:28)
[2019-11-06] MEDS: MORPHINE SULFATE 2 MG/1 ML DISP.SYRIN IV PRN (01:37)
[2019-11-06] MEDS: HYDROCODONE/APAP 5-325MG TABLET PO PRN ×3 (02:52→20:19)
--- NOTE | 2019-11-06 05:00 | NUR ---
Pt slept intermittently throughout night with complaints of pain addressed with prescribed medications. All prescribed medications provided as ordered and tolerated well, with no adverse side effects verbalized by patient or noted/observed by this nurse. All safety and fall precaution measures remain in place. Call light and personal items remain in place.
[2019-11-06] MEDS: MEROPENEM 500 MG in IV NORMAL SALINE 50 ML IV SCH ×2 (05:15→16:57)
[2019-11-06 05:45] VITALS: BP 131/55
[2019-11-06] MEDS: BLOOD SUGAR DIAGNOSTIC 1 EACH STRIP VI SCH ×4 (06:42→20:17)
[2019-11-06 06:51] LABS: BASOPHILS # (AUTO) 0.1 K/uL (0.0-8.0); BASOPHILS % (AUTO) 1.2 % (0.0-2.0); EOSINOPHILS # (AUTO) 0.2 K/uL (0.0-0.7); EOSINOPHILS % (AUTO) 2.8 % (0.0-7.0); HEMATOCRIT 32.8 % (31.2-41.9); HEMOGLOBIN 10.8 g/dL (10.9-14.3); LYMPHOCYTES # (AUTO) 2.7 K/uL (20.0-40.0); LYMPHOCYTES % (AUTO) 40.7 % (20.5-51.5); MEAN CORPUSCULAR HEMOGLOBIN 29.1 uug (24.7-32.8); MEAN CORPUSCULAR HGB CONC 33 g/dL (32.3-35.6); MEAN CORPUSCULAR VOLUME 88.1 fL (75.5-95.3); MONOCYTES # (AUTO) 0.5 K/uL (2.0-10.0); MONOCYTES % (AUTO) 7.8 % (0.0-11.0); NEUTROPHILS # (AUTO) 3.2 K/uL (1.8-8.9); NEUTROPHILS % (AUTO) 47.5 % (38.5-71.5); PLATELET COUNT (AUTO) 212 K/uL (179-408); RED BLOOD CELL COUNT(AUTO) 3.72 MIL/uL (3.63-4.92); WHITE BLOOD COUNT (AUTO) 6.7 K/uL (3.8-11.8)
[2019-11-06 07:06] LABS: CARBON DIOXIDE 27 mmol/L (21-32); CHLORIDE 105 mmol/L (98-107); CREATININE 1.4 mg/dL (0.6-1.3); GLUCOSE 171 mg/dL (74-106); UREA NITROGEN, BLOOD 26 mg/dL (7-18)
[2019-11-06] MEDS: INSULIN REGULAR, HUMAN 300 UNIT/3 ML VIAL SQ PRN ×4 (08:19→20:22)
[2019-11-06] MEDS: CARBIDOPA/LEVODOPA 25-100MG TABLET PO SCH ×3 (08:49→16:49)
[2019-11-06] MEDS: POLYVINYL ALCOHOL OPHT DROPS 15 ML BOTTLE OP SCH ×3 (08:49→16:48)
[2019-11-06] MEDS: DOCUSATE SODIUM 100 MG CAPSULE PO SCH (08:49)
[2019-11-06] MEDS: OMEGA-3 FATTY ACIDS/FISH OIL CAPSULE PO SCH (08:49)
[2019-11-06] MEDS: ASPIRIN EC 81 MG TABLET.DR PO SCH (08:49)
[2019-11-06] MEDS: GABAPENTIN 300 MG CAPSULE PO SCH ×3 (08:50→16:49)
[2019-11-06] MEDS: CULTURELLE CAPSULE PO SCH (08:50)
[2019-11-06] MEDS: MULTIVITAMINS,THERAPEUTIC TABLET PO SCH (08:50)
[2019-11-06] MEDS: CALCIUM CARB/VITAMIN D 500MG-200UNITS TABLET PO SCH (08:50)
[2019-11-06] MEDS: ASCORBIC ACID 500 MG TABLET PO SCH (08:50)
[2019-11-06 12:08] VITALS: BP 141/65
[2019-11-06] MEDS: IV NS 1000 ML 1,000 ML IV PRN (13:03)
[2019-11-06] MEDS: METHOCARBAMOL 500 MG TABLET PO SCH (16:49)
[2019-11-06] MEDS: HYDROCODONE/APAP 10-325 MG TABLET PO PRN (16:49)
[2019-11-06 17:01] VITALS: BP 144/58
--- NOTE | 2019-11-06 18:41 | NUR ---
Patient in bed awake AOx4, on RA with no SOB or distress noted at this time. Right below the elbow amputation. Complained of headache and left hip pain. PRN meds given as ordered, effective. Left above the knee amputation. No other complaints at this time. Bed locked in lowest position with siderails 2x up. Call light and belongings within reach
--- NOTE | 2019-11-06 20:00 | NUR ---
Patient received into care, sitting up in bed, watching television. Patient is alert/oriented x4 and requesting pain medication. IV on LONNY is intact and patent with NS running at 75mL/hr. All safety and fall precaution measures are in place. Call light and personal items are within reach. Will continue to monitor and assess.
[2019-11-06] MEDS: MAGNESIUM OXIDE 400 MG TABLET PO SCH (20:18)
[2019-11-06] MEDS: FAMOTIDINE 20 MG TABLET PO SCH (20:18)
[2019-11-06] MEDS: SIMETHICONE 80 MG TAB.CHEW PO SCH (20:18)
[2019-11-06] MEDS: PANTOPRAZOLE SODIUM 40 MG TABLET.DR PO SCH (20:18)
[2019-11-06] MEDS: ATORVASTATIN 10 MG TABLET PO SCH (20:18)
[2019-11-06] MEDS: TOPIRAMATE 25 MG TABLET PO SCH (20:18)
[2019-11-06 20:21] VITALS: BP 128/69
[2019-11-06] MEDS: INSULIN GLARGINE,HUM 300 UNITS/3 ML CARTRIDGE SQ SCH (20:22)
[2019-11-06] MEDS: ENOXAPARIN SODIUM 30 MG/0.3 ML DISP.SYRIN SQ SCH (20:23)
[2019-11-07] MEDS: HYDROCODONE/APAP 10-325 MG TABLET PO PRN ×3 (00:37→13:27)
[2019-11-07] MEDS: HYDROCODONE/APAP 5-325MG TABLET PO PRN ×3 (02:22→16:17)
[2019-11-07] MEDS: MEROPENEM 500 MG in IV NORMAL SALINE 50 ML IV SCH ×2 (04:12→18:53)
[2019-11-07 04:46] VITALS: BP 126/61
--- NOTE | 2019-11-07 05:00 | NUR ---
Patient slept intermittently throughout night with complaints of pain addressed with prescribed [place] 5/325 and [place] 10/325, with no adverse side effects verbalized by patient or noted/observed by this nurse. Patient complained several times regarding the room being hot and every attempt was made, within the limitations of the medical staff, to provide pt with a cool environment, which included checking the room's thermostat setting, removing all coverings except for sheet, and ensuring a/c vent was open. However, pt continued to still complain that she was "caliente" and requested ice packs for additional cooling measures, which were provided. All prescribed medications and IV antibiotic was provided as ordered and tolerated well, with no adverse side effects verbalized by pt or noted/observed by this nurse. IV cath in [facility] is patent and intact. All safety and fall precaution measures remain in place. Call light and personal items remain within reach.
[2019-11-07] MEDS: BLOOD SUGAR DIAGNOSTIC 1 EACH STRIP VI SCH ×4 (06:47→21:04)
[2019-11-07] MEDS: ASPIRIN EC 81 MG TABLET.DR PO SCH (08:24)
[2019-11-07] MEDS: CARBIDOPA/LEVODOPA 25-100MG TABLET PO SCH ×3 (08:24→16:16)
[2019-11-07] MEDS: CALCIUM CARB/VITAMIN D 500MG-200UNITS TABLET PO SCH (08:24)
[2019-11-07] MEDS: ASCORBIC ACID 500 MG TABLET PO SCH (08:24)
[2019-11-07] MEDS: DOCUSATE SODIUM 100 MG CAPSULE PO SCH (08:24)
[2019-11-07] MEDS: MULTIVITAMINS,THERAPEUTIC TABLET PO SCH (08:24)
[2019-11-07] MEDS: OMEGA-3 FATTY ACIDS/FISH OIL CAPSULE PO SCH (08:24)
[2019-11-07] MEDS: GABAPENTIN 300 MG CAPSULE PO SCH ×3 (08:24→16:16)
[2019-11-07] MEDS: CULTURELLE CAPSULE PO SCH (08:24)
[2019-11-07] MEDS: POLYVINYL ALCOHOL OPHT DROPS 15 ML BOTTLE OP SCH ×3 (08:27→16:16)
[2019-11-07] MEDS: METHOCARBAMOL 500 MG TABLET PO SCH ×2 (10:00→16:17)
--- NOTE | 2019-11-07 10:15 | NUR ---
Patient is AAO x 3-4, Luxembourgish speaking. NO acute distress noted. Skin warm and dry. Patient c/o pain 7/10, [place] 5/325mg 1 tab administered and tolerated. All due morning medications administered. IV site on Left upper arm infiltrated and removed IV, site covered, intact and dry. Safety needs in place, call light at bed side and will continue with care.
--- NOTE | 2019-11-07 11:30 | NUR ---
Patient seen by PLASTERER TENDER with an order for CT scan.
[2019-11-07 12:00] VITALS: BP 172/79
--- NOTE | 2019-11-07 12:06 | NUR ---
Patient taken to CT scan.
[2019-11-07] MEDS: INSULIN REGULAR, HUMAN 300 UNIT/3 ML VIAL SQ PRN ×3 (12:22→21:17)
[2019-11-07 12:51] LABS: BASOPHILS # (AUTO) 0.1 K/uL (0.0-8.0); BASOPHILS % (AUTO) 0.7 % (0.0-2.0); EOSINOPHILS # (AUTO) 0.1 K/uL (0.0-0.7); EOSINOPHILS % (AUTO) 0.5 % (0.0-7.0); HEMATOCRIT 35.5 % (31.2-41.9); HEMOGLOBIN 11.7 g/dL (10.9-14.3); LYMPHOCYTES # (AUTO) 2.1 K/uL (20.0-40.0); LYMPHOCYTES % (AUTO) 21.8 % (20.5-51.5); MEAN CORPUSCULAR HEMOGLOBIN 28.8 uug (24.7-32.8); MEAN CORPUSCULAR HGB CONC 33 g/dL (32.3-35.6); MEAN CORPUSCULAR VOLUME 87.4 fL (75.5-95.3); MONOCYTES # (AUTO) 0.5 K/uL (2.0-10.0); MONOCYTES % (AUTO) 5.1 % (0.0-11.0); NEUTROPHILS # (AUTO) 6.9 K/uL (1.8-8.9); NEUTROPHILS % (AUTO) 71.9 % (38.5-71.5); PLATELET COUNT (AUTO) 252 K/uL (179-408); RED BLOOD CELL COUNT(AUTO) 4.06 MIL/uL (3.63-4.92); WHITE BLOOD COUNT (AUTO) 9.7 K/uL (3.8-11.8)
--- NOTE | 2019-11-07 13:00 | NUR ---
Patient back from CT scan, BS checked administered insulin per sliding scale. patient also asked for pain pill [place] 10/325mg 1 tab administered as ordered and tolerated. Needs attended, safety measures in place and will continue with care.
[2019-11-07 13:33] LABS: CARBON DIOXIDE 27 mmol/L (21-32); CHLORIDE 101 mmol/L (98-107); CREATININE 1.4 mg/dL (0.6-1.3); GLUCOSE 228 mg/dL (74-106); POTASSIUM 4.6 mmol/L (3.5-5.1); UREA NITROGEN, BLOOD 21 mg/dL (7-18)
--- NOTE | 2019-11-07 14:34 | NUR ---
Report given to assigned nurse.
--- NOTE | 2019-11-07 14:35 | NUR ---
Reassigned pt, and received report from Nikita DONAHUE.
[2019-11-07 16:33] VITALS: BP 171/76
[2019-11-07] MEDS: IV NS 1000 ML 1,000 ML IV PRN (18:56)
--- NOTE | 2019-11-07 19:58 | NUR ---
In bed awake AOx4, on RA with no SOB or distress noted at this time. Complained of pain throughout the day and pain management provided. Midline insertion unsuccessful, inserted IV on left hand 22g instead, running NS @ 75 cc. Bed locked in lowest position with siderails 2x up. Call light within reach.
[2019-11-07 20:10] VITALS: BP 141/73
[2019-11-07] MEDS: ATORVASTATIN 10 MG TABLET PO SCH (20:55)
[2019-11-07] MEDS: MORPHINE SULFATE 2 MG/1 ML DISP.SYRIN IV PRN (20:55)
[2019-11-07] MEDS: FAMOTIDINE 20 MG TABLET PO SCH (20:55)
[2019-11-07] MEDS: MAGNESIUM OXIDE 400 MG TABLET PO SCH (20:56)
[2019-11-07] MEDS: TOPIRAMATE 25 MG TABLET PO SCH (21:00)
[2019-11-07] MEDS: INSULIN GLARGINE,HUM 300 UNITS/3 ML CARTRIDGE SQ SCH (21:12)
[2019-11-07] MEDS: ENOXAPARIN SODIUM 30 MG/0.3 ML DISP.SYRIN SQ SCH (21:18)
[2019-11-07] MEDS: SIMETHICONE 80 MG TAB.CHEW PO SCH (21:55)
--- NOTE | 2019-11-07 22:00 | NUR ---
PATIENT ALERT ORIENTED, NO SOB NO CHEST PAIN. PATIENT CONT ON PAIN MANAGEMENT, MEDICATED FOR PAIN WITH EFFECTIVE RESULTS, PATIENT KEPT CLEAN AND DRY, CONT TO MONITOR.
[2019-11-07] MEDS: PANTOPRAZOLE SODIUM 40 MG TABLET.DR PO SCH (22:01)
[2019-11-08] MEDS: MEROPENEM 500 MG in IV NORMAL SALINE 50 ML IV SCH (04:14)
[2019-11-08] MEDS: HYDROCODONE/APAP 5-325MG TABLET PO PRN ×2 (04:49→11:19)
[2019-11-08] MEDS: BLOOD SUGAR DIAGNOSTIC 1 EACH STRIP VI SCH ×3 (06:04→16:52)
[2019-11-08 06:36] VITALS: BP 134/62
[2019-11-08 06:37] LABS: BASOPHILS # (AUTO) 0.1 K/uL (0.0-8.0); BASOPHILS % (AUTO) 1.1 % (0.0-2.0); EOSINOPHILS # (AUTO) 0.2 K/uL (0.0-0.7); EOSINOPHILS % (AUTO) 2.4 % (0.0-7.0); HEMATOCRIT 34.9 % (31.2-41.9); HEMOGLOBIN 11.4 g/dL (10.9-14.3); LYMPHOCYTES # (AUTO) 2.8 K/uL (20.0-40.0); LYMPHOCYTES % (AUTO) 37.2 % (20.5-51.5); MEAN CORPUSCULAR HEMOGLOBIN 28.7 uug (24.7-32.8); MEAN CORPUSCULAR HGB CONC 33 g/dL (32.3-35.6); MEAN CORPUSCULAR VOLUME 88.2 fL (75.5-95.3); MONOCYTES # (AUTO) 0.6 K/uL (2.0-10.0); MONOCYTES % (AUTO) 7.5 % (0.0-11.0); NEUTROPHILS # (AUTO) 3.9 K/uL (1.8-8.9); NEUTROPHILS % (AUTO) 51.8 % (38.5-71.5); PLATELET COUNT (AUTO) 241 K/uL (179-408); RED BLOOD CELL COUNT(AUTO) 3.96 MIL/uL (3.63-4.92); WHITE BLOOD COUNT (AUTO) 7.6 K/uL (3.8-11.8)
--- NOTE | 2019-11-08 06:43 | NUR ---
PATIENT ASLEEP BUT AROUSABLE. PATIENT HAS NO SOB NO CHEST PAIN, CONT ON PAIN MANAGEMENT DUE TO HEADACHES. PATIENT SLEPT MOST OF THE NIGHT, GIVEN MOM FOR CONSTIPATION, NO RESULT YET, WILL ENDORSE TO NEXT SHIFT. CONT TO MONITOR.
[2019-11-08 06:51] LABS: CREATININE 1.2 mg/dL (0.6-1.3); POTASSIUM 4.4 mmol/L (3.5-5.1)
[2019-11-08] MEDS: CARBIDOPA/LEVODOPA 25-100MG TABLET PO SCH ×3 (09:47→16:49)
[2019-11-08] MEDS: ASCORBIC ACID 500 MG TABLET PO SCH (09:47)
[2019-11-08] MEDS: ASPIRIN EC 81 MG TABLET.DR PO SCH (09:47)
[2019-11-08] MEDS: METHOCARBAMOL 500 MG TABLET PO SCH ×2 (09:47→16:49)
[2019-11-08] MEDS: GABAPENTIN 300 MG CAPSULE PO SCH ×3 (09:47→16:49)
[2019-11-08] MEDS: CALCIUM CARB/VITAMIN D 500MG-200UNITS TABLET PO SCH (09:47)
[2019-11-08] MEDS: OMEGA-3 FATTY ACIDS/FISH OIL CAPSULE PO SCH (09:47)
[2019-11-08] MEDS: CULTURELLE CAPSULE PO SCH (09:47)
[2019-11-08] MEDS: MULTIVITAMINS,THERAPEUTIC TABLET PO SCH (09:47)
[2019-11-08] MEDS: DOCUSATE SODIUM 100 MG CAPSULE PO SCH (09:47)
[2019-11-08] MEDS: POLYVINYL ALCOHOL OPHT DROPS 15 ML BOTTLE OP SCH ×3 (09:48→16:52)
[2019-11-08] MEDS ORDERED: METH500T6 PO (11:11)
[2019-11-08] MEDS ORDERED: TOPI25TA PO (11:11)
[2019-11-08] MEDS ORDERED: HYDR-3972 PO (11:11)
[2019-11-08] MEDS ORDERED: MERO500P IV (11:11)
[2019-11-08] MEDS ORDERED: HYDR-3980 PO (11:11)
[2019-11-08 11:40] VITALS: BP 142/68
[2019-11-08] MEDS: INSULIN REGULAR, HUMAN 300 UNIT/3 ML VIAL SQ PRN ×2 (12:17→16:59)
--- NOTE | 2019-11-08 13:46 | NUR ---
Pt received no distress or SOB, pain R/T headache noted, [place] 5 administered per PRN orders. Pt compliant with care and medications as ordered. Pt seen by MD, new orders received, including D/C for today. Plan of care discussed with Pt. Call light placed within reach. Will continue to monitor and follow up.
[2019-11-08 16:19] VITALS: BP 125/61
--- NOTE | 2019-11-08 17:30 | NUR ---
Discharge order received. Plan of care discussed with Pt. Discharge paperwork completed, reviewed with Pt, signed, and copies placed in chart. Belongings list signed. Report called in to Mohini DONAHUE at [facility]. IV flushed and intact, left in due to continuation of IV antibiotics x4 days as ordered by MD and discussed with facility. Skin integrity intact, Pt refused L groin redness updated photo. All discharge concerns addressed. Report given to information operator, Pt safely transferred to [facility], and escorted out of hospital. Will remove Pt from system shortly.
[2019-11-10 05:22] LABS: A/G RATIO 0.7 (0.7-1.7); ALBUMIN 3.1 g/dL (2.9-4.4); ALPHA-1-GLOBULIN 0.3 g/dL (0.0-0.4); ALPHA-2-GLOBULIN 1.3 g/dL (0.4-1.0); BETA GLOBULIN 1.3 g/dL (0.7-1.3); GAMMA GLOBULIN 1.4 g/dL (0.4-1.8); GLOBULIN, TOTAL 4.3 g/dL (2.2-3.9); M-SPIKE Not Observed g/dL (Not Observed)
== END 2019-11-08 16:45 | DRG 690 ==
LOC: ER 16:11 → MEDSURG3 22:59
PROVIDERS: ADMIT Nurse Practitioner Acute Care; ATTEND Nurse Practitioner Acute Care
DX: N12 Tubulo-interstitial nephritis, not specified as acute or chronic (principal); E87.1 Hypo-osmolality and hyponatremia; Z68.42 Body mass index [BMI] 45.0-49.9, adult; Z16.12 Extended spectrum beta lactamase (ESBL) resistance; N17.0 Acute kidney failure with tubular necrosis; E11.42 Type 2 diabetes mellitus with diabetic polyneuropathy; E86.0 Dehydration; E66.01 Morbid (severe) obesity due to excess calories; E11.22 Type 2 diabetes mellitus with diabetic chronic kidney disease; E11.65 Type 2 diabetes mellitus with hyperglycemia; E78.5 Hyperlipidemia, unspecified; E86.1 Hypovolemia; G89.4 Chronic pain syndrome; I13.10 Hypertensive heart and chronic kidney disease without heart failure, with stage 1 through stage 4 chronic kidney disease, or unspecified chronic kidney disease; I25.2 Old myocardial infarction; K21.9 Gastro-esophageal reflux disease without esophagitis; N18.9 Chronic kidney disease, unspecified; M19.90 Unspecified osteoarthritis, unspecified site; Z89.201 Acquired absence of right upper limb, unspecified level; Z89.612 Acquired absence of left leg above knee; E11.21 Type 2 diabetes mellitus with diabetic nephropathy; Z79.891 Long term (current) use of opiate analgesic; B96.20 Unspecified Escherichia coli [E. coli] as the cause of diseases classified elsewhere; G43.909 Migraine, unspecified, not intractable, without status migrainosus; Z79.84 Long term (current) use of oral hypoglycemic drugs
CPT/HCPCS: 36415; 70030-TC; 70450; 72125; 72131; 83735; 83970; 84100; 84155; 84156; 84165; 84300; 84443; 84550; 85025; 87077; 87086; A4663; A9150; G0378; J1170; J1650; J1815; J2185; J2270; J2405; J3490; J7030

== ENCOUNTER 2020-10-10 14:05 | Inpatient (IN) | payer MEDICARE, OTHER ==
[~2020-10-10] VITALS: Ht 152.4 cm; Wt 106.6 kg
[~2020-10-10 14:05] MED LIST changes: -ACET650T11 PO; +ALCA3DRO EACHEYE; -ALCA3DRO OP; -ASCO500C16 PO; +ASCO500C6 PO; +ASPI1TAB4 PO; +CARB-300 PO; -CARB-93 PO; -DULO20CA PO; -HYDR-3326 PO; +HYDR-3972 PO; +HYDR-3980 PO; -LEVO500T2 PO; -LIDO35.4 TOP; +MERO500P IV; +METH-806 PO; +OMEP20CA15 PO; +ONDA4TAB5 PO; +TOPI25TA PO
--- NOTE | 2020-10-10 14:35 | NUR ---
Dr Savage at the bedside for MSE.
[2020-10-10] MEDS ORDERED: ONDANSETRON 4 MG/2 ML VIAL IV ONE (14:45)
[2020-10-10] MEDS ORDERED: HYDROMORPHONE 1 MG/1 ML DISP.SYRIN IV ONE (14:45)
[2020-10-10] MEDS ORDERED: IV NORMAL SALINE 1000 ML BAG IV ONE (14:45)
[2020-10-10] MEDS ORDERED: ONDANSETRON 4 MG/2 ML VIAL ONE (15:14)
[2020-10-10] MEDS ORDERED: HYDROMORPHONE 2 MG/1 ML DISP.SYRIN ONE (15:14)
[2020-10-10 15:44] LABS: HEMATOCRIT 36.6 % (31.2-41.9); MEAN CORPUSCULAR HEMOGLOBIN 29.7 uug (24.7-32.8); MEAN CORPUSCULAR VOLUME 89.1 fL (75.5-95.3); PLATELET COUNT (AUTO) 254 K/uL (179-408)
[2020-10-10 15:45] LABS: CARBON DIOXIDE 30 mmol/L (21-32); CHLORIDE 98 mmol/L (98-107); CREATININE 1.1 mg/dL (0.6-1.3); GLUCOSE 174 mg/dL (74-106); POTASSIUM 4.2 mmol/L (3.5-5.1); UREA NITROGEN, BLOOD 15 mg/dL (7-18)
[2020-10-10 15:51] LABS: ALANINE AMINOTRANSFERASE < 6 U/L (14-59); ALKALINE PHOSPHATASE 66 U/L (50-136); ASPARTATE AMINOTRANSFERASE 13 U/L (15-37); BILIRUBIN,DIRECT 0.1 mg/dL (0.0-0.2); BILIRUBIN,TOTAL 0.2 mg/dL (0.2-1.0); LIPASE 87 U/L (73-393)
[2020-10-10] MEDS ORDERED: ACET325C7 PO (15:56)
[2020-10-10] MEDS ORDERED: INSU100V39 SQ (15:56)
[2020-10-10] MEDS ORDERED: LIDOCAINE PATCH 5% TD (15:56)
[2020-10-10] MEDS ORDERED: MELA3TAB41 PO (15:56)
[2020-10-10] MEDS ORDERED: POLY17PO4 PO (15:56)
[2020-10-10] MEDS ORDERED: INSU100C SQ (15:56)
[2020-10-10] MEDS ORDERED: GABA-532 PO (15:56)
[2020-10-10] MEDS ORDERED: SENN-211 PO (15:56)
[2020-10-10] MEDS ORDERED: INSU100V7 SQ (15:56)
[2020-10-10] MEDS ORDERED: HEPA500034 SQ (15:56)
--- NOTE | 2020-10-10 16:14 | NUR ---
Pt asked to urinate, said "No pee ". Water given.
--- NOTE | 2020-10-10 16:42 | NUR ---
Patient is resting comfortably in bed with eyes closed, NAD noted.
--- NOTE | 2020-10-10 17:45 | NUR ---
Urine collected and sent to LAB.
[2020-10-10 18:00] LABS: *BILIRUBIN,URIN NEGATIVE (NEGATIVE); *CLARITY,URINE CLEAR (CLEAR); *COLOR,URINE LIGHT YELLOW (YELLOW); *KETONES,URINE NEGATIVE (NEGATIVE); *UROBILINOGEN,URINE 0.2 E.U./dl (NORMAL); LEUKOCYTE ESTERASE ,URINE 1+ (NEGATIVE); NITRITE, URINE NEGATIVE (NEGATIVE); PH,URINE 5.5 (5.0-8.0); UGLUCOSE NEGATIVE (NEGATIVE)
[2020-10-10 18:03] LABS: *BLOOD, URINE TRACE INTACT (NEGATIVE)
--- NOTE | 2020-10-10 18:18 | NUR ---
Pt assissted w/ feeding, able to use LT hand w/o difficulty.
[2020-10-10] MEDS ORDERED: ONDANSETRON 4 MG/2 ML VIAL IV PRN (18:30)
[2020-10-10] MEDS ORDERED: BISACODYL 10 MG SUPP.RECT RC PRN (18:30)
[2020-10-10] MEDS ORDERED: CEFTRIAXONE 1 G in IV DEXTROSE 5% 50 ML IV SCH (18:30)
[2020-10-10] MEDS ORDERED: Medication Not On Formulary EA (Acetaminophen (Tylenol) 650 MG) PO SCH (18:30)
[2020-10-10] MEDS ORDERED: ACETAMINOPHEN 325 MG TABLET PO PRN (18:30)
[2020-10-10 19:01] LABS: BACTERIA,URINE NONE SEEN /HPF (NONE SEEN); SQUAMOUS EPITHELIAL CELL,UR NONE SEEN /HPF (NONE SEEN)
--- NOTE | 2020-10-10 20:17 | NUR ---
Note tanisha in EDM - 10/10/20 at 2038 by NICK Pt. in bed resting. States her pain has reduced to 2/10. Pts. daughter is at bedside.
--- NOTE | 2020-10-10 20:17 | NUR ---
Peng garay in [facility] - 10/10/20 at 2039 by NICK US at bedside.
--- NOTE | 2020-10-10 20:39 | NUR ---
Pt. resting in bed. No change in condition. Vss. Will continue to monitor.
--- NOTE | 2020-10-10 20:48 | NUR ---
Gave report to GODFREY Duval for continuity of care.
--- NOTE | 2020-10-10 21:20 | NUR ---
ADMITTED PATIENT IN TELE FLOOR UNDER THE CARE OF DR. RUSSELL. PATIENT ALERT ORIENTED SPEAK THAI BUT UNDERSTAND INDONESIAN. PATIENT HAS RIGHT HAND OLD AMPUTEE AND OLD LEFT AKA. PATIENT HAS R SIDE ABDOMEN PURPLE COLOR BRUISE. CONT TO MONITOR.
[2020-10-10 21:30] VITALS: BP 139/60
[2020-10-10] MEDS ORDERED: POLYVINYL ALCOHOL OPHT DROPS 15 ML BOTTLE OP PRN (21:30)
[2020-10-10] MEDS ORDERED: CEFTRIAXONE 1 G VIAL ONE (21:58)
[2020-10-10] MEDS: GABAPENTIN 100 MG CAPSULE PO SCH (22:00)
[2020-10-10] MEDS: SENNOSIDES/DOCUSATE SODIUM TABLET PO SCH (22:38)
[2020-10-10] MEDS: ATORVASTATIN 10 MG TABLET PO SCH (22:38)
[2020-10-10] MEDS: MELATONIN 3 MG TABLET PO SCH (22:38)
[2020-10-10] MEDS: INSULIN GLARGINE,HUM 300 UNITS/3 ML CARTRIDGE SQ SCH (22:45)
[2020-10-11] MEDS: MORPHINE SULFATE 2 MG/1 ML DISP.SYRIN IV PRN ×3 (01:45→20:34)
[2020-10-11 04:05] VITALS: BP 162/58
[2020-10-11] MEDS: HYDROCODONE/APAP 10-325 MG TABLET PO PRN ×2 (05:23→12:08)
[2020-10-11 06:20] LABS: HEMATOCRIT 37.7 % (31.2-41.9); MEAN CORPUSCULAR HEMOGLOBIN 29.5 uug (24.7-32.8); MEAN CORPUSCULAR VOLUME 89.8 fL (75.5-95.3); PLATELET COUNT (AUTO) 232 K/uL (179-408)
--- NOTE | 2020-10-11 06:23 | NUR ---
PATIENT ASLEEP BUT AROUSABLE, NO SOB NO CHEST PAIN, CONT ON PAIN MANAGEMENT DUE LOWER BACK PAIN, TURN AND REPOSITION, KEPT CLEAN AND DRY. PATIENT GIVEN ICE PACK FOR LOWER BACK PAIN WHICH HELPS FOR PAIN, CONT TO MONITOR.
[2020-10-11] MEDS: PANTOPRAZOLE SODIUM 40 MG TABLET.DR PO SCH (06:31)
[2020-10-11 06:45] LABS: BILIRUBIN,TOTAL 0.2 mg/dL (0.2-1.0); CREATININE 1.1 mg/dL (0.6-1.3); MAGNESIUM 2.2 mg/dL (1.8-2.4); PHOSPHOROUS 4.7 mg/dL (2.5-4.9); POTASSIUM 4.8 mmol/L (3.5-5.1); TOTAL PROTEIN, SERUM 7.2 g/dL (6.4-8.2)
[2020-10-11 07:49] LABS: THYROID STIMULATING HORMONE 2.558 mIU/mL (0.358-3.740)
--- NOTE | 2020-10-11 08:00 | NUR ---
AWAKE ALERT AND VERBALLY RESPONSIVE, C/O ON AND OFF BACK/GENERALIZE PAIN CONTINUE WITH PAIN MANAGEMENT
[2020-10-11] MEDS: CALCIUM CARB/VITAMIN D 500MG-200UNITS TABLET PO SCH (08:36)
[2020-10-11] MEDS: ASCORBIC ACID 500 MG TABLET PO SCH (08:37)
[2020-10-11] MEDS: CULTURELLE CAPSULE PO SCH (08:37)
[2020-10-11] MEDS: MIRALAX 17 GM POWD.PACK PO SCH (08:37)
[2020-10-11] MEDS: GABAPENTIN 100 MG CAPSULE PO SCH ×3 (08:37→17:02)
[2020-10-11] MEDS: ASPIRIN EC 81 MG TABLET.DR PO SCH (08:37)
[2020-10-11] MEDS: CARBIDOPA/LEVODOPA 25-100MG TABLET PO SCH ×3 (08:37→17:02)
[2020-10-11] MEDS: OMEGA-3 FATTY ACIDS/FISH OIL CAPSULE PO SCH (08:37)
[2020-10-11] MEDS: MULTIVIT, IRON, MIN NO. 8, FA TABLET PO SCH (08:37)
[2020-10-11] MEDS ORDERED: Medication Not On Formulary EA (Multivitamins W-Minerals (Multivitamin With Minerals) 1 PO SCH (09:00)
[2020-10-11] MEDS ORDERED: DEXTROSE 50% 50 ML DISP.SYRIN IV PRN (10:45)
[2020-10-11] MEDS ORDERED: MAGNESIUM CITRATE 296 ML BOTTLE PO ONE (10:45)
--- NOTE | 2020-10-11 11:30 | NUR ---
DR KAT NOTIFIED AND VERIFIED INSULIN ORDER AND SAID STARRT ON NOVOLOG. PHARMACY NOTIFIED AND REVIEWED ORDERS
[2020-10-11 11:53] VITALS: BP 119/59
[2020-10-11] MEDS: BLOOD SUGAR DIAGNOSTIC 1 EACH STRIP VI SCH ×3 (12:03→20:39)
[2020-10-11] MEDS: INSULIN LISPRO 300 UNIT/3 ML VIAL SQ PRN ×3 (12:05→20:43)
[2020-10-11] MEDS: VALSARTAN 160 MG TABLET PO SCH ×2 (12:07→20:26)
[2020-10-11] MEDS: Z GUARD REMEDY PASTE 57 GM TUBE TOP SCH ×2 (12:09→21:46)
--- NOTE | 2020-10-11 15:23 | NUR ---
CONTINUE WITH ROCEPHIN FOR UTI NO ALLERGY REACTION NOTED, NO ACUTE CHANGE FROM AM ASSESSMENT
[2020-10-11 16:03] VITALS: BP 95/49
[2020-10-11] MEDS: RIVAROXABAN 10 MG TABLET PO SCH (17:04)
[2020-10-11 20:00] VITALS: BP 124/58
[2020-10-11] MEDS: ATORVASTATIN 10 MG TABLET PO SCH (20:26)
[2020-10-11] MEDS: SENNOSIDES/DOCUSATE SODIUM TABLET PO SCH (20:26)
[2020-10-11] MEDS: MELATONIN 3 MG TABLET PO SCH (20:26)
[2020-10-11] MEDS: INSULIN GLARGINE,HUM 300 UNITS/3 ML CARTRIDGE SQ SCH (20:44)
[2020-10-11] MEDS ORDERED: CEFTRIAXONE 1 G in IV DEXTROSE 5% 50 ML IV SCH (22:00)
[2020-10-12] VITALS: BP 98/34
[2020-10-12 00:45] VITALS: BP 99/54
[2020-10-12] MEDS: HYDROCODONE/APAP 10-325 MG TABLET PO PRN ×2 (00:47→10:27)
[2020-10-12] MEDS: PANTOPRAZOLE SODIUM 40 MG TABLET.DR PO SCH (06:21)
[2020-10-12] MEDS: BLOOD SUGAR DIAGNOSTIC 1 EACH STRIP VI SCH ×4 (06:34→21:23)
--- NOTE | 2020-10-12 06:57 | NUR ---
PAtient awake alert and able to make needs known in no acute distress noted. On Ra. NSR on Tele. Patient on ATB therapy , infused well no a/r noted. Iv patent and intact on left FA.PAtient had large BM x1 this morning .Pericare rendered.Bs 141 this morning. All needs antcipated and met accordingly.will endorse to oncoming shift.
--- NOTE | 2020-10-12 07:10 | NUR ---
received patient in bed awake, HOB elevated, no complains of any pain or discomfort at this time. call light kept within reach. safety precautions in place. will continue to monitor.
[2020-10-12] MEDS: MORPHINE SULFATE 2 MG/1 ML DISP.SYRIN IV PRN ×4 (08:00→22:09)
[2020-10-12] MEDS: MIRALAX 17 GM POWD.PACK PO SCH ×2 (09:00→09:24)
[2020-10-12] MEDS: CULTURELLE CAPSULE PO SCH (09:15)
[2020-10-12] MEDS: ASPIRIN EC 81 MG TABLET.DR PO SCH (09:24)
[2020-10-12] MEDS: VALSARTAN 160 MG TABLET PO SCH (09:24)
[2020-10-12] MEDS: OMEGA-3 FATTY ACIDS/FISH OIL CAPSULE PO SCH (09:24)
[2020-10-12] MEDS: CARBIDOPA/LEVODOPA 25-100MG TABLET PO SCH ×3 (09:25→17:57)
[2020-10-12] MEDS: MULTIVIT, IRON, MIN NO. 8, FA TABLET PO SCH (09:25)
[2020-10-12] MEDS: LIDOCAINE 5% PATCH TD SCH (09:25)
[2020-10-12] MEDS: CALCIUM CARB/VITAMIN D 500MG-200UNITS TABLET PO SCH (09:25)
[2020-10-12] MEDS: ASCORBIC ACID 500 MG TABLET PO SCH (09:25)
[2020-10-12] MEDS: GABAPENTIN 100 MG CAPSULE PO SCH ×3 (09:25→17:56)
[2020-10-12] MEDS: Z GUARD REMEDY PASTE 57 GM TUBE TOP SCH ×2 (09:26→20:44)
[2020-10-12] MEDS ORDERED: POLYVINYL ALCOHOL OPHT DROPS 15 ML BOTTLE EACHEYE PRN (09:46)
[2020-10-12 10:38] LABS: AFP, TUMOR MARKER 1.5
[2020-10-12 11:30] VITALS: BP 130/59
[2020-10-12] MEDS: INSULIN LISPRO 300 UNIT/3 ML VIAL SQ PRN ×3 (12:44→21:22)
[2020-10-12 15:47] VITALS: BP 131/59
[2020-10-12] MEDS ORDERED: NALOXONE HCL 0.4 MG/ML AMPUL IV PRN (17:30)
[2020-10-12] MEDS: RIVAROXABAN 10 MG TABLET PO SCH (17:57)
--- NOTE | 2020-10-12 18:32 | NUR ---
patient awake in bed, HOB elevated. no complains of SOB, pain or discomfort at this time. patient repositioned for comfort. call light kept within reach. will report to oncoming shift.
[2020-10-12 20:00] VITALS: BP 138/56
[2020-10-12] MEDS: SENNOSIDES/DOCUSATE SODIUM TABLET PO SCH (20:43)
[2020-10-12] MEDS: VALSARTAN 80 MG TABLET PO SCH (20:43)
[2020-10-12] MEDS: ATORVASTATIN 10 MG TABLET PO SCH (20:44)
[2020-10-12] MEDS: OXYCODONE HCL 20 MG TAB.SR.12H PO SCH (20:44)
[2020-10-12] MEDS: MELATONIN 3 MG TABLET PO SCH (20:44)
[2020-10-12] MEDS ORDERED: INSULIN GLARGINE,HUM 300 UNITS/3 ML CARTRIDGE SQ SCH (21:00)
[2020-10-12] MEDS ORDERED: CEFTRIAXONE 2 G in IV DEXTROSE 5% 100 ML IV SCH (22:00)
[2020-10-13 04:00] VITALS: BP 131/49
[2020-10-13] MEDS: BLOOD SUGAR DIAGNOSTIC 1 EACH STRIP VI SCH ×2 (06:17→12:15)
[2020-10-13] MEDS: PANTOPRAZOLE SODIUM 40 MG TABLET.DR PO SCH (06:17)
--- NOTE | 2020-10-13 08:00 | NUR ---
RECEIVED CHANGE OF SHIFT REPORT, C/O BACK PAIN AND UTI, PT A.OX4, BULGARIAN SPEAKING, ON ROOM AIR, NO SIGNS OF DISTRESS, NO REPORTS OF PAIN, SATURATING AT 94%. PT INCONTINENT, IV ON THE LEFT FA 20G, PATENT, INTACT. PT HAS LEFT ABOVE ELBOW AMPUTATION AND RIGHT AKA. BED LOW AND LOCKED, CALL LIGHT WITHIN REACH, WILL CONTINUE WITH PLAN OF CARE.
[2020-10-13] MEDS ORDERED: INSULIN GLARGINE,HUM 300 UNITS/3 ML CARTRIDGE SQ SCH (09:00)
[2020-10-13] MEDS: VALSARTAN 80 MG TABLET PO SCH (09:00)
[2020-10-13] MEDS: GABAPENTIN 100 MG CAPSULE PO SCH ×2 (09:12→13:34)
[2020-10-13] MEDS: MULTIVIT, IRON, MIN NO. 8, FA TABLET PO SCH (09:14)
[2020-10-13] MEDS: OXYCODONE HCL 20 MG TAB.SR.12H PO SCH (09:14)
[2020-10-13] MEDS: CULTURELLE CAPSULE PO SCH (09:14)
[2020-10-13] MEDS: MIRALAX 17 GM POWD.PACK PO SCH (09:15)
[2020-10-13] MEDS: ASCORBIC ACID 500 MG TABLET PO SCH (09:15)
[2020-10-13] MEDS: CALCIUM CARB/VITAMIN D 500MG-200UNITS TABLET PO SCH (09:15)
[2020-10-13] MEDS: CARBIDOPA/LEVODOPA 25-100MG TABLET PO SCH ×2 (09:15→13:33)
[2020-10-13] MEDS: ASPIRIN EC 81 MG TABLET.DR PO SCH (09:15)
[2020-10-13] MEDS: OMEGA-3 FATTY ACIDS/FISH OIL CAPSULE PO SCH (09:15)
[2020-10-13] MEDS: Z GUARD REMEDY PASTE 57 GM TUBE TOP SCH (09:16)
[2020-10-13] MEDS: LIDOCAINE 5% PATCH TD SCH (09:16)
[2020-10-13] MEDS ORDERED: NITROFURANTOIN/NITROFURAN MAC 100 MG CAPSULE PO SCH (10:00)
--- NOTE | 2020-10-13 11:28 | NUR ---
WOUND CARE CONSULT: PT ADAMANTLY REFUSED SKIN ASSESSMENT. PT NOTED TO HAVE RT UPPER AND LEFT LOWER EXTREMITY AMPUTATIONS. PER NURSING STAFF, PT HAS INCONTINENCE ASSOCIATED SKIN DAMAGE TO BUTTOCK, NOT ON BONY AREA, PRESENT ON ADMISSION. RECOMMENDATIONS MADE FOR SKIN PROTECTION. DISCUSSED WITH NURSING STAFF. MD IN AGREEMENT WITH PLAN OF CARE.
[2020-10-13] MEDS ORDERED: Blood Sugar Diagnostic VI (11:48)
[2020-10-13] MEDS ORDERED: PANT40TA2 PO (11:48)
[2020-10-13] MEDS ORDERED: Insulin Glargine,Hum SQ ×2 (11:48)
[2020-10-13] MEDS ORDERED: Oxycodone Sr PO (11:48)
[2020-10-13] MEDS ORDERED: INSU100V SQ (11:48)
[2020-10-13] MEDS ORDERED: MENT71OI TOP (11:48)
[2020-10-13] MEDS ORDERED: DEXT50DI8 IV (11:48)
[2020-10-13] MEDS ORDERED: VALS40TA4 PO (11:48)
[2020-10-13] MEDS ORDERED: NITR100C11 PO (11:48)
[2020-10-13] MEDS ORDERED: RIVA10TA PO (11:48)
[2020-10-13 11:55] VITALS: BP 108/54
[2020-10-13] MEDS: INSULIN LISPRO 300 UNIT/3 ML VIAL SQ PRN (12:17)
--- NOTE | 2020-10-13 14:26 | NUR ---
REPORT CALLED TO GODFREY JOHNSON AT [facility]. PT GOING TO BED 20B.
[2020-10-13] MEDS: HYDROCODONE/APAP 10-325 MG TABLET PO PRN (15:07)
[2020-10-13 15:52] VITALS: BP 95/43
--- NOTE | 2020-10-13 17:00 | NUR ---
PT DISCHARGED TO [facility] WITH ALL BELONGINGS, AND PAPERWORK. REPORT CALLED TO GODFREY JOHNSON AT FACILITY. PT cooperative and pleasant, Jordanian speaking, PT A/OX4, PT HAD WOUND ON LEFT BUTTOCKS, PHOTO TAKEN IN CHART, PT ON ROOM AIR, NO SIGNS OF DISTRESS, NO REPORTS OF PAIN AT THIS TIME, VITALS WNL. PT BEDBOUND, INCONTINENT, PT WILL BE ON ABX X5DAYS AT FACILITY. PT VITALS WNL. PT LEFT VIA AMBULANCE
== END 2020-10-13 16:30 | DRG 551 ==
LOC: ER 14:05 → MEDSURG3 20:56 → TELE3 22:43 → MEDSURG3 10-12 22:15
PROVIDERS: ADMIT Internal Medicine; ATTEND Internal Medicine
DX: M51.35 Other intervertebral disc degeneration, thoracolumbar region (principal); E43 Unspecified severe protein-calorie malnutrition; Z68.42 Body mass index [BMI] 45.0-49.9, adult; N39.0 Urinary tract infection, site not specified; Z16.12 Extended spectrum beta lactamase (ESBL) resistance; D68.59 Other primary thrombophilia; F11.20 Opioid dependence, uncomplicated; M48.05 Spinal stenosis, thoracolumbar region; I25.2 Old myocardial infarction; E66.01 Morbid (severe) obesity due to excess calories; E11.42 Type 2 diabetes mellitus with diabetic polyneuropathy; Z89.612 Acquired absence of left leg above knee; T75.4XXS Electrocution, sequela; W86.8XXS Exposure to other electric current, sequela; B96.20 Unspecified Escherichia coli [E. coli] as the cause of diseases classified elsewhere; E11.65 Type 2 diabetes mellitus with hyperglycemia; E78.5 Hyperlipidemia, unspecified; G20 Parkinson's disease; K42.9 Umbilical hernia without obstruction or gangrene; Z79.899 Other long term (current) drug therapy; Z20.822 Contact with and (suspected) exposure to COVID-19; Z89.211 Acquired absence of right upper limb below elbow; Z96.651 Presence of right artificial knee joint; Z79.4 Long term (current) use of insulin; Z79.01 Long term (current) use of anticoagulants; Z74.09 Other reduced mobility; K76.0 Fatty (change of) liver, not elsewhere classified; G89.29 Other chronic pain; K21.9 Gastro-esophageal reflux disease without esophagitis; F32.9 Major depressive disorder, single episode, unspecified; G31.84 Mild cognitive impairment of uncertain or unknown etiology; K76.9 Liver disease, unspecified; I13.10 Hypertensive heart and chronic kidney disease without heart failure, with stage 1 through stage 4 chronic kidney disease, or unspecified chronic kidney disease; N18.9 Chronic kidney disease, unspecified; M19.90 Unspecified osteoarthritis, unspecified site
CPT/HCPCS: 36415; 70030-TC; 71045; 82105; 82378; 83605; 83690; 83735; 84100; 84443; 85025; 85730; 87077; 87086; 93005; 93307; A4663; G0378; J0696; J1170; J1815; J2270; J2405; J3490; J7030; J7060

== ENCOUNTER 2023-09-17 18:17 | Inpatient (IN) | payer MEDICARE, OTHER ==
[~2023-09-17] VITALS: Ht 152.4 cm; Wt 120.2 kg
[~2023-09-17 18:17] MED LIST changes: +ACET325C7 PO; -ASPI1TAB4 PO; -BENA5TAB5 PO; +Blood Sugar Diagnostic VI; +DEXT50DI8 IV; -DOCU-141 PO; -FAMO20TA8 PO; +GABA-532 PO; -GABA-534 PO; -HYDR-3972 PO; +INSU100C SQ; +INSU100V SQ; -INSU100V11 SUBCUT; +INSU100V39 SQ; -INSULIN GLARGINE SUBCUT; +Insulin Glargine,Hum SQ; -LACT1CAP69 PO; +LIDOCAINE PATCH 5% TD; -LOPE-195 PO; -MAGN400O6 PO; -MAGN400T8 PO; +MELA3TAB41 PO; +MENT71OI TOP; -MERO500P IV; -METH-806 PO; -NA P133E RC; +NITR100C11 PO; -OMEG1CAP PO; -OMEP20CA15 PO; -ONDA4TAB5 PO; +Oxycodone Sr PO; +PANT40TA2 PO; +POLY17PO4 PO; +RIVA10TA PO; +SENN-211 PO; -TOPI25TA PO; +VALS40TA4 PO
[2023-09-17 18:56] LABS: BASOPHILS # (AUTO) 0.1 K/UL (0.0-0.2); BASOPHILS % (AUTO) 0.7 % (0.0-2.0); EOSINOPHILS # (AUTO) 0.1 K/uL (0.0-0.7); EOSINOPHILS % (AUTO) 0.6 % (0.0-7.0); HEMATOCRIT 33.6 % (31.2-41.9); HEMOGLOBIN 10.7 g/dL (10.9-14.3); LYMPHOCYTES # (AUTO) 2.6 K/uL (0.8-4.8); LYMPHOCYTES % (AUTO) 23.3 % (20.5-51.5); MEAN CORPUSCULAR HEMOGLOBIN 27.6 uug (24.7-32.8); MEAN CORPUSCULAR HGB CONC 32 g/dL (32.3-35.6); MEAN CORPUSCULAR VOLUME 86.6 fL (75.5-95.3); MONOCYTES # (AUTO) 1.3 K/uL (0.1-1.30); MONOCYTES % (AUTO) 11.3 % (0.0-11.0); NEUTROPHILS # (AUTO) 7.1 K/uL (1.8-8.9); NEUTROPHILS % (AUTO) 64.1 % (38.5-71.5); PLATELET COUNT (AUTO) 225 K/uL (179-408); RED BLOOD CELL COUNT(AUTO) 3.88 MIL/uL (3.63-4.92); RED CELL DISTRIBUTION WIDTH 14.5 % (12.3-17.7); WHITE BLOOD COUNT (AUTO) 11.1 K/uL (3.8-11.8)
[2023-09-17 18:57] LABS: DIFFERENTIAL COMMENT 1
[2023-09-17] MEDS: ALBUTEROL SULFATE 2.5 MG/3 ML NEBU NEB ONE (19:05)
[2023-09-17] MEDS: IPRATROPIUM BROMIDE 0.5 MG/2.5 ML NEBU NEB ONE (19:05)
[2023-09-17 19:06] LABS: CALCIUM 8.7 mg/dL (8.5-10.1); CARBON DIOXIDE 27 mmol/L (21-32); CHLORIDE 101 mmol/L (98-107); GLUCOSE 225 mg/dL (74-106); POTASSIUM 4.3 mmol/L (3.5-5.1); SODIUM SERUM 138 mmol/L (136-145); UREA NITROGEN, BLOOD 34 mg/dL (7-18)
[2023-09-17] MEDS ORDERED: IPRATROPIUM BROMIDE 0.5 MG/2.5 ML NEBU ONE (19:06)
[2023-09-17] MEDS ORDERED: ALBUTEROL SULFATE 2.5 MG/3 ML NEBU ONE (19:06)
[2023-09-17 19:10] VITALS: O2SAT 98
[2023-09-17 19:20] LABS: ALANINE AMINOTRANSFERASE < 6 U/L (14-59); ALBUMIN 2.6 g/dL (3.4-5.0); ALKALINE PHOSPHATASE 97 U/L (50-136); ASPARTATE AMINOTRANSFERASE 24 U/L (15-37); BILIRUBIN,DIRECT 0.1 mg/dL (0.0-0.2); BILIRUBIN,TOTAL 0.3 mg/dL (0.2-1.0); NT-PRO BNP 563 pg/mL (0-125); TOTAL PROTEIN, SERUM 7.7 g/dL (6.4-8.2)
[2023-09-17 19:25] VITALS: O2SAT 99
[2023-09-17] MEDS ORDERED: levoFLOXacin 750MG/D5W 150 ML IV ONE (19:45)
[2023-09-17] MEDS: levoFLOXacin 750 MG/D5W 150 ML PIGGYBACK IV ONE (19:53)
[2023-09-17] MEDS ORDERED: DEXTROSE 50% 50 ML DISP.SYRIN IV PRN (21:30)
[2023-09-17] MEDS ORDERED: ALBUTEROL SULFATE 2.5 MG/ 0.5 ML NEBU NEB PRN (21:30)
[2023-09-17] MEDS: BLOOD SUGAR DIAGNOSTIC 1 EACH STRIP VI SCH (21:30)
[2023-09-17] MEDS ORDERED: ONDANSETRON 4 MG/2 ML VIAL IV PRN (21:30)
[2023-09-17] MEDS ORDERED: HYDROCODONE/APAP 10-325 MG TABLET ONE (21:31)
[2023-09-17] MEDS: HYDROCODONE/APAP 10-325 MG TABLET PO ONE (21:43)
[2023-09-17 23:30] VITALS: BP 143/63; TEMP 98.9; O2SAT 96
[2023-09-18] MEDS ORDERED: PIPERACILLIN/TAZO 2.25 G in IV DEXTROSE 5% 50 ML IV SCH
[2023-09-18] MEDS: INSULIN REGULAR, HUMAN 300 UNITS/3 ML VIAL SQ PRN (00:52)
[2023-09-18] MEDS ORDERED: VANCOMYCIN 1000 MG VIAL ONE ×2 (01:28→01:56)
[2023-09-18] MEDS ORDERED: VANCOMYCIN IV 200 ML ONE (01:28)
[2023-09-18] MEDS ORDERED: PIPERACILLIN/TAZOBACTAM/D5W 50 ML ONE ×2 (01:29→01:56)
[2023-09-18] MEDS: HYDROCODONE/APAP 10-325 MG TABLET PO PRN (02:10)
[2023-09-18] MEDS: PIPERACILLIN/TAZO 2.25 G in IV DEXTROSE 5% 50 ML IV ONE (02:11)
[2023-09-18] MEDS: VANCOMYCIN IV 2,000 MG in IV DEXTROSE 5% 500 ML IV ONE (02:11)
[2023-09-18] MEDS: TEMAZEPAM 15 MG CAPSULE PO PRN (02:30)
[2023-09-18] MEDS: PANTOPRAZOLE SODIUM 40 MG TABLET.DR PO SCH (06:30)
[2023-09-18 06:35] LABS: BASOPHILS # (AUTO) 0.1 K/UL (0.0-0.2); BASOPHILS % (AUTO) 0.6 % (0.0-2.0); EOSINOPHILS # (AUTO) 0.1 K/uL (0.0-0.7); EOSINOPHILS % (AUTO) 1.2 % (0.0-7.0); HEMATOCRIT 30.9 % (31.2-41.9); LYMPHOCYTES # (AUTO) 2.1 K/uL (0.8-4.8); LYMPHOCYTES % (AUTO) 22.4 % (20.5-51.5); MEAN CORPUSCULAR HEMOGLOBIN 28.1 uug (24.7-32.8); MEAN CORPUSCULAR HGB CONC 32 g/dL (32.3-35.6); MEAN CORPUSCULAR VOLUME 87.2 fL (75.5-95.3); MONOCYTES # (AUTO) 1.2 K/uL (0.1-1.30); MONOCYTES % (AUTO) 12.4 % (0.0-11.0); NEUTROPHILS % (AUTO) 63.4 % (38.5-71.5); PLATELET COUNT (AUTO) 214 K/uL (179-408); RED BLOOD CELL COUNT(AUTO) 3.55 MIL/uL (3.63-4.92); WHITE BLOOD COUNT (AUTO) 9.5 K/uL (3.8-11.8)
[2023-09-18 07:11] VITALS: BP 145/68; TEMP 98.9; O2SAT 99
[2023-09-18 07:12] LABS: ALANINE AMINOTRANSFERASE 12 U/L (14-59); ALBUMIN 2.3 g/dL (3.4-5.0); ALKALINE PHOSPHATASE 88 U/L (50-136); ASPARTATE AMINOTRANSFERASE 11 U/L (15-37); BILIRUBIN,TOTAL 0.3 mg/dL (0.2-1.0); CALCIUM 8.5 mg/dL (8.5-10.1); CARBON DIOXIDE 28 mmol/L (21-32); CHLORIDE 102 mmol/L (98-107); CREATININE 2.1 mg/dL (0.6-1.3); DIFFERENTIAL COMMENT 1; GLUCOSE 201 mg/dL (74-106); MAGNESIUM 2.1 mg/dL (1.8-2.4); PHOSPHOROUS 4.7 mg/dL (2.5-4.9); POTASSIUM 4.3 mmol/L (3.5-5.1); SODIUM SERUM 136 mmol/L (136-145); TOTAL PROTEIN, SERUM 7.2 g/dL (6.4-8.2); UREA NITROGEN, BLOOD 35 mg/dL (7-18)
[2023-09-18 07:17] LABS: IRON, SERUM 19 ug/dL (50-175)
[2023-09-18 08:00] VITALS: BP 144/58; TEMP 98.8; O2SAT 99
[2023-09-18] MEDS: HEPARIN SODIUM,PORCINE 5,000 UNITS/ML VIAL SQ SCH (08:14)
[2023-09-18 08:23] LABS: CHOLESTEROL 155 mg/dL (<200); HDL CHOLESTEROL 72 mg/dL (40-60); TRIGLYCERIDES 68 MG/DL (30-150)
[2023-09-18 09:07] LABS: THYROID STIMULATING HORMONE 2.942 mIU/mL (0.358-3.740)
[2023-09-18] MEDS ORDERED: DOCU-141 PO (11:04)
[2023-09-18] MEDS ORDERED: FAMO20TA8 PO (11:07)
[2023-09-18] MEDS ORDERED: DULO30CA2 PO (11:07)
[2023-09-18] MEDS ORDERED: OMEG1CAP74 PO (11:09)
[2023-09-18] MEDS ORDERED: GABA300T25 PO (11:10)
[2023-09-18] MEDS ORDERED: DEXT15SY3 PO (11:12)
[2023-09-18] MEDS ORDERED: RIVA15TA PO (11:16)
[2023-09-18] MEDS ORDERED: LIDO30AD10 TD (11:16)
[2023-09-18] MEDS ORDERED: POLY15DR31 EACHEYE (11:26)
[2023-09-18] MEDS ORDERED: INSU100V7 SQ ×2 (11:29→11:30)
[2023-09-18] MEDS ORDERED: REMEDY ESSENTIAL ZINC PASTE 113 GM TOP PRN (11:30)
[2023-09-18] MEDS ORDERED: BLOO-360 IN (11:34)
[2023-09-18] MEDS ORDERED: ACID1TAB4 PO (11:35)
[2023-09-18] MEDS ORDERED: NAPH15DR EACHEYE (11:36)
[2023-09-18] MEDS ORDERED: CYAN500L PO (11:44)
[2023-09-18] MEDS ORDERED: CHOL100062 PO (11:45)
[2023-09-18 11:49] VITALS: BP 103/64; TEMP 97.7; O2SAT 99
[2023-09-18] MEDS: INSULIN REGULAR, HUMAN 300 UNIT/3 ML VIAL SQ PRN (12:23)
[2023-09-18] MEDS: PIPERACILLIN/TAZO 2.25 G in IV DEXTROSE 5% 50 ML IV SCH (12:27)
[2023-09-18] MEDS: LIDOCAINE HCL 1% 20 ML VIAL IJ ONE (13:24)
[2023-09-18] MEDS ORDERED: PIPERACILLIN SODIUM/TAZOBACTAM 3.375 G in IV DEXTROSE 5% 100 ML IV SCH (14:00)
[2023-09-18 15:23] VITALS: BP 149/71; TEMP 99.8; O2SAT 99
[2023-09-18 16:01] LABS: *BILIRUBIN,URIN NEGATIVE (NEGATIVE); *BLOOD, URINE 1+ (NEGATIVE); *CLARITY,URINE CLEAR (CLEAR); *COLOR,URINE LIGHT YELLOW (YELLOW); *KETONES,URINE NEGATIVE (NEGATIVE); *PROTEIN,URINE 3+ (NEGATIVE); *UROBILINOGEN,URINE 0.2 E.U./dl (NORMAL); LEUKOCYTE ESTERASE ,URINE NEGATIVE (NEGATIVE); NITRITE, URINE NEGATIVE (NEGATIVE); UGLUCOSE TRACE (NEGATIVE)
[2023-09-18 16:07] LABS: *CREATININE,URINE 16.3 mg/dL (30-125); *URINE TOTAL PROTEIN RANDOM 154.8 mg/dL (<150/24HR)
[2023-09-18 16:14] LABS: WBC,URINE 0-3 /HPF (0-3)
[2023-09-18 16:15] LABS: BACTERIA,URINE NONE SEEN /HPF (NONE SEEN); SQUAMOUS EPITHELIAL CELL,UR FEW /HPF (NONE SEEN)
[2023-09-18 20:39] VITALS: BP 170/71; TEMP 100.7; O2SAT 98
[2023-09-18] MEDS ORDERED: MIRALAX 17 GM POWD.PACK PO PRN (20:45)
[2023-09-18] MEDS ORDERED: BISACODYL 10 MG SUPP.RECT RC PRN (20:45)
[2023-09-18] MEDS ORDERED: NAPHAZOLINE/PHENIR OPHT DROP 15 ML BOTTLE EACHEYE PRN (20:45)
[2023-09-18] MEDS ORDERED: SIMETHICONE 80 MG TAB.CHEW PO PRN (20:45)
[2023-09-18] MEDS: INSULIN GLARGINE,HUM 300 UNITS/3 ML CARTRIDGE SQ SCH (21:00)
[2023-09-18] MEDS ORDERED: DOCUSATE SODIUM 100 MG CAPSULE PO SCH (21:00)
[2023-09-18] MEDS: DOCUSATE SODIUM 100 MG CAPSULE PO SCH (21:10)
[2023-09-18] MEDS: ACETAMINOPHEN 325 MG TABLET PO PRN (21:11)
[2023-09-18] MEDS: HYDROMORPHONE 1 MG/1 ML DISP.SYRIN IV PRN (21:14)
[2023-09-18] MEDS: hydrALAZINE HCL 25 MG TABLET PO PRN (21:14)
[2023-09-18] MEDS: ATORVASTATIN 10 MG TABLET PO SCH (21:33)
[2023-09-18] MEDS: REMEDY ESSENTIAL ZINC PASTE 113 GM TOP SCH (21:34)
[2023-09-18] MEDS ORDERED: GUAIFENESIN/DEXTROMETHORPHAN 5 ML UDC PO PRN (21:45)
[2023-09-18] MEDS: SENNOSIDES/DOCUSATE SODIUM TABLET PO SCH (21:50)
[2023-09-18] MEDS: MELATONIN 3 MG TABLET PO SCH (21:51)
[2023-09-18] MEDS ORDERED: CEFEPIME HCL 1 G VIAL ONE (22:21)
[2023-09-18 23:00] VITALS: BP 150/57; TEMP 98.9
[2023-09-18] MEDS: CEFEPIME HCL 1 G in IV DEXTROSE 5% 50 ML IV ONE (23:42)
[2023-09-19 06:12] VITALS: BP 162/70; TEMP 98.8; O2SAT 97
[2023-09-19 07:08] LABS: BASOPHILS # (AUTO) 0.1 K/UL (0.0-0.2); BASOPHILS % (AUTO) 0.7 % (0.0-2.0); EOSINOPHILS % (AUTO) 0.4 % (0.0-7.0); HEMATOCRIT 33.2 % (31.2-41.9); LYMPHOCYTES # (AUTO) 1.6 K/uL (0.8-4.8); LYMPHOCYTES % (AUTO) 15.2 % (20.5-51.5); MEAN CORPUSCULAR HEMOGLOBIN 28.5 uug (24.7-32.8); MEAN CORPUSCULAR HGB CONC 33 g/dL (32.3-35.6); MEAN CORPUSCULAR VOLUME 86.3 fL (75.5-95.3); MONOCYTES # (AUTO) 1.3 K/uL (0.1-1.30); MONOCYTES % (AUTO) 12.7 % (0.0-11.0); NEUTROPHILS # (AUTO) 7.5 K/uL (1.8-8.9); PLATELET COUNT (AUTO) 241 K/uL (179-408); RED BLOOD CELL COUNT(AUTO) 3.85 MIL/uL (3.63-4.92); RED CELL DISTRIBUTION WIDTH 14.1 % (12.3-17.7); WHITE BLOOD COUNT (AUTO) 10.5 K/uL (3.8-11.8)
[2023-09-19] MEDS ORDERED: NAPHAZOLINE/PHENIR OPHT DROP 15 ML BOTTLE EACHEYE PRN ×2 (07:15→07:30)
[2023-09-19 07:17] LABS: DIFFERENTIAL COMMENT 1
[2023-09-19 07:25] LABS: ALANINE AMINOTRANSFERASE 23 U/L (14-59); ALBUMIN 2.2 g/dL (3.4-5.0); ALKALINE PHOSPHATASE 125 U/L (50-136); ASPARTATE AMINOTRANSFERASE 20 U/L (15-37); BILIRUBIN,TOTAL 0.4 mg/dL (0.2-1.0); CALCIUM 8.9 mg/dL (8.5-10.1); CARBON DIOXIDE 27 mmol/L (21-32); CHLORIDE 98 mmol/L (98-107); CREATINE KINASE, TOTAL 142 U/L (26-192); GLUCOSE 274 mg/dL (74-106); PHOSPHOROUS 3.8 mg/dL (2.5-4.9); POTASSIUM 4.5 mmol/L (3.5-5.1); SODIUM SERUM 135 mmol/L (136-145); TOTAL PROTEIN, SERUM 7.8 g/dL (6.4-8.2); UREA NITROGEN, BLOOD 32 mg/dL (7-18); VANCOMYCIN,RANDOM 16.3 ug/mL (20.0-30.0)
[2023-09-19] MEDS: ASPIRIN EC 81 MG TABLET.DR PO SCH (08:42)
[2023-09-19] MEDS: OMEGA-3 FATTY ACIDS/FISH OIL CAPSULE PO SCH (08:42)
[2023-09-19] MEDS: DULOXETINE 30 MG CAPSULE.DR PO SCH (08:42)
[2023-09-19] MEDS: GABAPENTIN 300 MG CAPSULE PO SCH (08:42)
[2023-09-19] MEDS: ACIDOPHILUS/BULGARICUS CHEW TAB PO SCH (08:42)
[2023-09-19] MEDS: CARBIDOPA/LEVODOPA 25-100MG TABLET PO SCH (08:42)
[2023-09-19] MEDS: CHOLECALCIFEROL 1,000 UNIT TABLET PO SCH (08:42)
[2023-09-19] MEDS: CYANOCOBALAMIN 1,000 MCG TABLET PO SCH (08:43)
[2023-09-19] MEDS: LIDOCAINE 5% PATCH TD SCH (08:47)
[2023-09-19] MEDS ORDERED: RIVAROXABAN 15 MG TABLET PO SCH (09:00)
[2023-09-19] MEDS ORDERED: LIDOCAINE 5% PATCH TD SCH (09:00)
[2023-09-19] MEDS: VANCOMYCIN HCL 1,500 MG in IV DEXTROSE 5% 500 ML IV SCH (09:49)
[2023-09-19 12:18] LABS: *BILIRUBIN,URIN NEGATIVE (NEGATIVE); *BLOOD, URINE 1+ (NEGATIVE); *CLARITY,URINE CLEAR (CLEAR); *COLOR,URINE YELLOW (YELLOW); *KETONES,URINE TRACE (NEGATIVE); *UROBILINOGEN,URINE 0.2 E.U./dl (NORMAL); LEUKOCYTE ESTERASE ,URINE NEGATIVE (NEGATIVE); NITRITE, URINE NEGATIVE (NEGATIVE); PH,URINE 6.5 (5.0-8.0)
[2023-09-19 12:22] LABS: *PROTEIN,URINE 3+ (NEGATIVE); UGLUCOSE 1+ (NEGATIVE)
[2023-09-19 13:40] LABS: *CREATININE,URINE 14.2 mg/dL (30-125); *URINE TOTAL PROTEIN RANDOM 229.2 mg/dL (<150/24HR)
[2023-09-19 16:21] LABS: RBC,URINE 0-3 /HPF (0-3)
[2023-09-19 16:22] LABS: BACTERIA,URINE NONE SEEN /HPF (NONE SEEN); SQUAMOUS EPITHELIAL CELL,UR FEW /HPF (NONE SEEN); WBC,URINE 0-3 /HPF (0-3)
[2023-09-19] MEDS: RIVAROXABAN 10 MG TABLET PO SCH (17:18)
[2023-09-19 20:10] VITALS: BP 140/72; TEMP 98.5; O2SAT 97
[2023-09-19] MEDS: INSULIN GLARGINE,HUM 300 UNITS/3 ML CARTRIDGE SQ SCH (20:53)
[2023-09-19] MEDS ORDERED: CEFEPIME HCL 0.5 G in IV DEXTROSE 5% 50 ML IV SCH (21:00)
[2023-09-19] MEDS ORDERED: CEFEPIME HCL 1 G VIAL IV SCH (23:00)
[2023-09-19] MEDS: CEFEPIME HCL 1 G in IV DEXTROSE 5% 50 ML IV SCH (23:53)
[2023-09-20 03:58] VITALS: O2SAT 98
[2023-09-20 04:00] VITALS: BP 130/68; TEMP 98.2; O2SAT 98
[2023-09-20 06:37] LABS: BASOPHILS # (AUTO) 0.1 K/UL (0.0-0.2); BASOPHILS % (AUTO) 0.7 % (0.0-2.0); EOSINOPHILS # (AUTO) 0.1 K/uL (0.0-0.7); HEMATOCRIT 32.9 % (31.2-41.9); HEMOGLOBIN 10.5 g/dL (10.9-14.3); LYMPHOCYTES % (AUTO) 15.7 % (20.5-51.5); MEAN CORPUSCULAR HEMOGLOBIN 27.6 uug (24.7-32.8); MEAN CORPUSCULAR HGB CONC 32 g/dL (32.3-35.6); MEAN CORPUSCULAR VOLUME 86.6 fL (75.5-95.3); MONOCYTES # (AUTO) 1.5 K/uL (0.1-1.30); MONOCYTES % (AUTO) 11.5 % (0.0-11.0); NEUTROPHILS % (AUTO) 71.1 % (38.5-71.5); PLATELET COUNT (AUTO) 268 K/uL (179-408); RED CELL DISTRIBUTION WIDTH 14.1 % (12.3-17.7); WHITE BLOOD COUNT (AUTO) 12.7 K/uL (3.8-11.8)
[2023-09-20 06:43] LABS: DIFFERENTIAL COMMENT 1
[2023-09-20 07:19] LABS: ALANINE AMINOTRANSFERASE 8 U/L (14-59); ALBUMIN 2.1 g/dL (3.4-5.0); ALKALINE PHOSPHATASE 126 U/L (50-136); ASPARTATE AMINOTRANSFERASE 11 U/L (15-37); BILIRUBIN,TOTAL 0.3 mg/dL (0.2-1.0); CARBON DIOXIDE 28 mmol/L (21-32); CHLORIDE 99 mmol/L (98-107); CREATINE KINASE, TOTAL 132 U/L (26-192); CREATININE 2.3 mg/dL (0.6-1.3); GLUCOSE 210 mg/dL (74-106); MAGNESIUM 2.2 mg/dL (1.8-2.4); PHOSPHOROUS 4.5 mg/dL (2.5-4.9); POTASSIUM 3.9 mmol/L (3.5-5.1); SODIUM SERUM 135 mmol/L (136-145); TOTAL PROTEIN, SERUM 7.5 g/dL (6.4-8.2); UREA NITROGEN, BLOOD 33 mg/dL (7-18)
[2023-09-20 12:07] VITALS: BP 130/57; TEMP 98.4; O2SAT 99
[2023-09-20 16:06] VITALS: BP 120/52; TEMP 98.9; O2SAT 99
[2023-09-20 20:26] VITALS: BP 120/61; TEMP 98.3; O2SAT 97
[2023-09-21] VITALS (7 sets, daily range): BP systolic 105–141; BP diastolic 65–73; TEMP 98.2–98.6; O2SAT 97–99
[2023-09-21] MEDS: INSULIN GLARGINE,HUM 300 UNITS/3 ML CARTRIDGE SQ SCH (09:07)
[2023-09-21 10:11] LABS: PTH, INTACT 67 pg/mL (15-65)
[2023-09-21 10:31] LABS: BASOPHILS # (AUTO) 0.1 K/UL (0.0-0.2); BASOPHILS % (AUTO) 1.1 % (0.0-2.0); EOSINOPHILS # (AUTO) 0.2 K/uL (0.0-0.7); EOSINOPHILS % (AUTO) 2.1 % (0.0-7.0); HEMATOCRIT 31.7 % (31.2-41.9); HEMOGLOBIN 9.7 g/dL (10.9-14.3); LYMPHOCYTES # (AUTO) 1.9 K/uL (0.8-4.8); LYMPHOCYTES % (AUTO) 15.9 % (20.5-51.5); MEAN CORPUSCULAR HEMOGLOBIN 26.6 uug (24.7-32.8); MEAN CORPUSCULAR HGB CONC 31 g/dL (32.3-35.6); MEAN CORPUSCULAR VOLUME 86.9 fL (75.5-95.3); MONOCYTES # (AUTO) 1.3 K/uL (0.1-1.30); MONOCYTES % (AUTO) 11.1 % (0.0-11.0); NEUTROPHILS # (AUTO) 8.1 K/uL (1.8-8.9); NEUTROPHILS % (AUTO) 69.8 % (38.5-71.5); PLATELET COUNT (AUTO) 268 K/uL (179-408); RED BLOOD CELL COUNT(AUTO) 3.64 MIL/uL (3.63-4.92); RED CELL DISTRIBUTION WIDTH 14.2 % (12.3-17.7); WHITE BLOOD COUNT (AUTO) 11.7 K/uL (3.8-11.8)
[2023-09-21 10:32] LABS: DIFFERENTIAL COMMENT 1
[2023-09-21 10:41] LABS: ALANINE AMINOTRANSFERASE 15 U/L (14-59); ALBUMIN 1.8 g/dL (3.4-5.0); ALKALINE PHOSPHATASE 117 U/L (50-136); ASPARTATE AMINOTRANSFERASE 32 U/L (15-37); BILIRUBIN,TOTAL 0.4 mg/dL (0.2-1.0); CALCIUM 8.9 mg/dL (8.5-10.1); CARBON DIOXIDE 23 mmol/L (21-32); CHLORIDE 99 mmol/L (98-107); CREATININE 2.7 mg/dL (0.6-1.3); GLUCOSE 115 mg/dL (74-106); MAGNESIUM 2.4 mg/dL (1.8-2.4); SODIUM SERUM 135 mmol/L (136-145); TOTAL PROTEIN, SERUM 7.2 g/dL (6.4-8.2); UREA NITROGEN, BLOOD 44 mg/dL (7-18)
[2023-09-22 04:55] VITALS: O2SAT 97
[2023-09-22 05:51] VITALS: BP 141/70; TEMP 98.3; O2SAT 99
[2023-09-22 07:40] LABS: ALANINE AMINOTRANSFERASE 8 U/L (14-59); ALKALINE PHOSPHATASE 113 U/L (50-136); ASPARTATE AMINOTRANSFERASE 18 U/L (15-37); BILIRUBIN,TOTAL 0.2 mg/dL (0.2-1.0); CALCIUM 8.8 mg/dL (8.5-10.1); CARBON DIOXIDE 25 mmol/L (21-32); CHLORIDE 101 mmol/L (98-107); CREATININE 2.9 mg/dL (0.6-1.3); GLUCOSE 109 mg/dL (74-106); MAGNESIUM 2.6 mg/dL (1.8-2.4); PHOSPHOROUS 5.4 mg/dL (2.5-4.9); SODIUM SERUM 136 mmol/L (136-145); TOTAL PROTEIN, SERUM 7.1 g/dL (6.4-8.2); UREA NITROGEN, BLOOD 55 mg/dL (7-18); VANCOMYCIN,RANDOM 17.6 ug/mL (20.0-30.0)
[2023-09-22 07:41] LABS: ALBUMIN 1.7 g/dL (3.4-5.0)
[2023-09-22 08:06] LABS: PTH, INTACT 80 pg/mL (15-65)
[2023-09-22] MEDS: PROTEIN SUPPLEMENT (PROSTAT) 30 ML LIQUID PO SCH (09:30)
[2023-09-22] MEDS ORDERED: DOXY100C5 PO (11:09)
[2023-09-22] MEDS ORDERED: ACET325T53 PO (11:09)
[2023-09-22] MEDS ORDERED: PROT30LI PO (11:09)
[2023-09-22] MEDS ORDERED: ALBU2.5V13 NEB (11:09)
[2023-09-22] MEDS ORDERED: RIVA10TA PO (11:09)
[2023-09-22 11:32] VITALS: BP 139/66; TEMP 98; O2SAT 99
[2023-09-22 13:34] LABS: BASOPHILS # (AUTO) 0.1 K/UL (0.0-0.2); BASOPHILS % (AUTO) 0.6 % (0.0-2.0); EOSINOPHILS # (AUTO) 0.4 K/uL (0.0-0.7); EOSINOPHILS % (AUTO) 3.3 % (0.0-7.0); HEMATOCRIT 32.9 % (31.2-41.9); HEMOGLOBIN 10.3 g/dL (10.9-14.3); LYMPHOCYTES # (AUTO) 1.7 K/uL (0.8-4.8); LYMPHOCYTES % (AUTO) 15.2 % (20.5-51.5); MEAN CORPUSCULAR HEMOGLOBIN 27.3 uug (24.7-32.8); MEAN CORPUSCULAR HGB CONC 32 g/dL (32.3-35.6); MEAN CORPUSCULAR VOLUME 86.7 fL (75.5-95.3); MONOCYTES # (AUTO) 1.1 K/uL (0.1-1.30); MONOCYTES % (AUTO) 9.2 % (0.0-11.0); NEUTROPHILS # (AUTO) 8.2 K/uL (1.8-8.9); NEUTROPHILS % (AUTO) 71.7 % (38.5-71.5); PLATELET COUNT (AUTO) 275 K/uL (179-408); RED BLOOD CELL COUNT(AUTO) 3.79 MIL/uL (3.63-4.92); RED CELL DISTRIBUTION WIDTH 14.2 % (12.3-17.7); WHITE BLOOD COUNT (AUTO) 11.4 K/uL (3.8-11.8)
[2023-09-23 06:06] LABS: A/G RATIO 0.6 (0.7-1.7); ALBUMIN 2.6 g/dL (2.9-4.4); ALPHA-1-GLOBULIN 0.6 g/dL (0.0-0.4); ALPHA-2-GLOBULIN 1.5 g/dL (0.4-1.0); BETA GLOBULIN 1.3 g/dL (0.7-1.3); GAMMA GLOBULIN 1.3 g/dL (0.4-1.8); GLOBULIN, TOTAL 4.6 g/dL (2.2-3.9); M-SPIKE Not Observed g/dL (Not Observed)
[2023-09-23 06:06] LABS: A/G RATIO 0.6 (0.7-1.7); ALBUMIN 2.2 g/dL (2.9-4.4); ALPHA-1-GLOBULIN 0.6 g/dL (0.0-0.4); ALPHA-2-GLOBULIN 1.3 g/dL (0.4-1.0); BETA GLOBULIN 1.2 g/dL (0.7-1.3); GAMMA GLOBULIN 0.9 g/dL (0.4-1.8); M-SPIKE Not Observed g/dL (Not Observed)
== END 2023-09-22 15:20 | DRG 871 ==
LOC: ER 18:19 → TELE3 22:42 → MEDSURG3 09-18 11:11
PROVIDERS: ADMIT Internal Medicine; ATTEND Internal Medicine
PROC: 0HDRXZZ Extraction of Toe Nail, External Approach (ICD-10-PCS; principal; 2023-09-18)
PROC: 05HC33Z Insertion of Infusion Device into Left Basilic Vein, Percutaneous Approach (ICD-10-PCS; 2023-09-19)
DX: A41.9 Sepsis, unspecified organism (principal); E43 Unspecified severe protein-calorie malnutrition; G92.8 Other toxic encephalopathy; J69.0 Pneumonitis due to inhalation of food and vomit; N17.0 Acute kidney failure with tubular necrosis; I50.21 Acute systolic (congestive) heart failure; J96.90 Respiratory failure, unspecified, unspecified whether with hypoxia or hypercapnia; Z68.42 Body mass index [BMI] 45.0-49.9, adult; F11.20 Opioid dependence, uncomplicated; I13.0 Hypertensive heart and chronic kidney disease with heart failure and stage 1 through stage 4 chronic kidney disease, or unspecified chronic kidney disease; D68.59 Other primary thrombophilia; E66.01 Morbid (severe) obesity due to excess calories; Z89.612 Acquired absence of left leg above knee; E10.22 Type 1 diabetes mellitus with diabetic chronic kidney disease; E10.65 Type 1 diabetes mellitus with hyperglycemia; E10.42 Type 1 diabetes mellitus with diabetic polyneuropathy; N18.9 Chronic kidney disease, unspecified; L03.031 Cellulitis of right toe; G20.A1 Parkinson's disease without dyskinesia, without mention of fluctuations; N28.1 Cyst of kidney, acquired; M15.9 Polyosteoarthritis, unspecified; M81.0 Age-related osteoporosis without current pathological fracture; M51.35 Other intervertebral disc degeneration, thoracolumbar region; G89.29 Other chronic pain; G31.84 Mild cognitive impairment of uncertain or unknown etiology; L08.9 Local infection of the skin and subcutaneous tissue, unspecified; S90.211A Contusion of right great toe with damage to nail, initial encounter; X58.XXXA Exposure to other specified factors, initial encounter; Y92.129 Unspecified place in nursing home as the place of occurrence of the external cause; I49.3 Ventricular premature depolarization; I25.10 Atherosclerotic heart disease of native coronary artery without angina pectoris; E88.09 Other disorders of plasma-protein metabolism, not elsewhere classified; E78.5 Hyperlipidemia, unspecified; F32.A Depression, unspecified; K21.9 Gastro-esophageal reflux disease without esophagitis; I25.2 Old myocardial infarction; Z87.440 Personal history of urinary (tract) infections; Z87.01 Personal history of pneumonia (recurrent); K42.9 Umbilical hernia without obstruction or gangrene; K76.0 Fatty (change of) liver, not elsewhere classified; Z89.211 Acquired absence of right upper limb below elbow; Z79.01 Long term (current) use of anticoagulants; Z79.899 Other long term (current) drug therapy; Z90.49 Acquired absence of other specified parts of digestive tract; Z74.09 Other reduced mobility; Z79.4 Long term (current) use of insulin
CPT/HCPCS: 36415; 71045; 71250; 73020; 73630; 76770; 82378; 83550; 83605; 83735; 83970; 84100; 84155; 84165; 84300; 84443; 84484; 85025; 85610; 87040; 93005; 93307; A6213; C1758; G0378; J0692; J1170; J1644; J1815; J1956; J2543; J3370; J3371; J3490; J3590; J7040; J7060